=== PATIENT | female | born 1990 | race Caucasian/White ===

== ENCOUNTER 2019-10-18 09:23 | Emergency (ER) | payer MEDICAID, SELFPAY ==
[2019-10-18 09:24] VITALS: BMI 24.0
[2019-10-18 09:29] VITALS: BP 104/77; PULSE 96; RESP 18; TEMP 36.8; O2SAT 100
[2019-10-18 09:49] LABS: Basophils % 0.1 %; Hematocrit 42.7 % (37.0-47.0); Hemoglobin 14.4 g/dL (11.5-15.3); Lymphocytes # 1.1 10^3/uL (0.8-4.8); Lymphocytes % 4.6 %; Mean Corpuscular HGB Conc 33.7 g/dL (30.0-36.0); Mean Corpuscular Hemoglobin 30.9 pg (28.0-34.0); Mean Corpuscular Volume 91.6 fL (81-99); Mean Platelet Volume 12.4 fL (7.4-10.4); Monocytes # 1.3 10^3/uL (0.2-0.9); Monocytes % 5.7 %; Neutrophils # 21.1 10^3/uL (1.8-7.7); Neutrophils % 88.8 %; Nucleated Red Blood Cells % 0 %; Platelet Count 188 10^3/cmm (130-400); Red Blood Count 4.66 10^6/uL (4.1-5.3); Red Cell Distribution Width 12.4 % (12.1-15.1); White Blood Count 23.7 10^3/uL (4.0-10.0)
[2019-10-18 09:59] LABS: HCG Qualitative Urine. Negative (Negative)
[2019-10-18 10:04] LABS: Slide Review Slide Review Perform
[2019-10-18 10:07] LABS: Alanine Aminotransferase 11 U/L (0-33); Albumin Level 4.9 g/dL (3.5-5.2); Alkaline Phosphatase 94 IU/L (35-105); Anion Gap 16.4 (5-19); Aspartate Amino Transferase 13 U/L (0-32); Blood Urea Nitrogen 7 mg/dL (6-20); Carbon Dioxide 24 mmol/L (22-29); Chloride 99 mmol/L (98-107); Globulin 2.5 g/dL (1.3-4.6); Glucose 117 mg/dL (74-109); Potassium 3.4 mmol/L (3.5-5.1); Sodium 136 mmol/L (136-145); Total Bilirubin 0.8 mg/dL (0.15-1.2); Total Protein 7.4 g/dL (6.6-8.7)
[2019-10-18 10:18] LABS: Add Urine Microscopic? YES; Bilirubin Urine Neg (NEGATIVE); Blood Urine 2+ (Negative); Glucose Urine UA Norm (Normal); Ketones Urine 1+ (Negative); Leukocyte Esterase Urine Negative (Negative); Nitrate Urine Negative (Negative); Protein Urine Trace (Negative); Urine Appearance Clear (CLEAR); Urine Color Yellow (Yellow); Urobilinogen Urine Norm (Negative)
[2019-10-18 10:31] LABS: Bacteria Urine 1+; Mucus Urine 1+; Squamous Epithelial Cell Urine 0-4 (0-5); WBC Urine 25-40 /hpf (0-5)
[2019-10-18 10:32] LABS: Add Urine Culture? Yes
== END 2019-10-18 12:04 | disposition left against medical advice (07) ==
LOC: ER 09:50
PROVIDERS: Emergency Provider Family Medicine
DX: Z53.21 Procedure and treatment not carried out due to patient leaving prior to being seen by health care provider (principal)
CPT/HCPCS: 36415; 80053; 81001; 81025; 85025; 87077; 87086; 87186; 99281

== ENCOUNTER 2019-10-18 21:39 | Observation (INO) | payer MEDICAID, SELFPAY ==
[2019-10-18 21:40] VITALS: BP 114/65; PULSE 107; RESP 16; TEMP 37.4; O2SAT 99; BMI 24.0
--- NOTE | 2019-10-18 21:57 | CTR_ITS ---
PROCEDURE INFORMATION: Exam: CT Abdomen With Contrast Exam date and time: 10/18/2019 10:17 PM Age: 29 years old Clinical indication: Abdominal pain; Flank; Right; Prior surgery; Surgery type: Gb; Additional info: Right flank/ R/O pyelonephritis TECHNIQUE: Imaging protocol: Computed tomography images of the abdomen with intravenous contrast. Total DLP: 298.93 mGy-cm Radiation optimization: All CT scans at this facility use at least one of these dose optimization techniques: automated exposure control; mA and/or kV adjustment per patient size (includes targeted exams where dose is matched to clinical indication); or iterative reconstruction. Contrast material: OMNI 300; Contrast volume: 95 ml; Contrast route: IV; COMPARISON: US Renal Kidney Structu* [id number] 10/21/2016 11:04 AM FINDINGS: Lungs: The lung bases are clear. Liver: Unremarkable.Unremarkable. Gallbladder and bile ducts: Prior cholecystectomy, no significant biliary tree dilation. Pancreas: Unremarkable. Spleen: Unremarkable. Adrenals: Unremarkable. Kidneys and ureters: There are prominent areas of poor/decreased enhancement involving the right kidney. Mild wall thickening involving the proximal right ureter. While not completely specific, this appearance is very suspicious for right pyelonephritis. Please correlate clinically. No significant hydronephrosis. Mild right perinephric stranding. No significant perinephric fluid. The left kidney appears essentially unremarkable. Stomach and bowel: Possibility of slightly thickened mucosa/wall in the distal antrum of the stomach. This is a nonspecific appearance, and could well be transient on CT, but could also represent evidence for gastritis or peptic ulcer disease. Please correlate clinically. Several proximal small bowel loops are fluid-filled and borderline/mildly prominent in size, including the duodenum. The overall appearance is not strongly suggestive of significant small bowel obstruction at this time. This appearance could be secondary to an ileus or some form of gastroenteritis. Please correlate clinically. If there is clinical suspicion for small bowel obstruction, follow-up may be helpful to exclude progression. Appendix: The appendix is identified, and there are no suspicious findings for appendicitis. No pericecal inflammatory changes are seen. Intraperitoneal space: No free intraperitoneal air, or ascites. Lymph nodes: No retroperitoneal adenopathy. Vasculature: No evidence for abdominal aortic aneurysm. Bones/joints: No significant acute abnormality. Soft tissues: No significant acute abnormality. CT/CT abdomen w con* [id number] IMPRESSION: 1. Findings compatible with right pyelonephritis, see above discussion. 2. Several proximal small bowel loops are fluid-filled and borderline/mildly prominent in size, see above discussion. This appearance could be secondary to an ileus or some form of gastroenteritis. 3. Possible thickened mucosa/wall in the distal stomach, see above discussion. 4. Other findings discussed above. 5. The pelvis was not included on this exam. Radiation Dose CTDIVOL = (mGy): DLP = 298.93 (mGy-cm)
--- NOTE | 2019-10-18 22:00 | ED_ITS ---
HPI - General Adult General: Chief complaint: Abdominal Pain Stated complaint: RT SIDED FLANK PAIN Time Seen by Provider: 10/18/19 21:43 History of Present Illness: HPI narrative: Patient complain about right flank pain urinary frequency fever chills nausea last few days. Was here in the ER earlier today and left before being seen. White count was almost 24,000 definite UTI on urinalysis results patient is not feeling better. MD complaint: uti Onset (ago): day(s) Location: back and right Severity: moderate Severity scale (1-10): 6 Quality: aching Pain Consistency: constant Relieving factors: none Associated symptoms: Reports fevers/chills and nausea; Deny chest pain, dyspnea, headache(s), rash or vomiting (Yesterday but not today) Review of Systems Const: Denies: fever, chills or body aches Eyes: Denies: change in vision or blurry vision ENMT: Denies: throat pain or nasal congestion Card: Denies: chest pain or shortness of breath on exertion Resp: Denies: shortness of breath, productive cough or non-productive cough GI: Reports: nausea; Denies: abdominal pain or vomiting (Yesterday but not today) : Reports: flank pain, urinary frequency, urinary urgency and urinary hesitancy Musc: Denies: extremity pain Skin/Breast: Denies: rash Neuro: Denies: headache Psych: Denies: anxiety or depression Bijan/Lymph: Denies: easy bruising PFSH ED PFSH: Statuses (acute, chronic, etc) shown below reflect problem list status as previously entered and may not be historically accurate Social History Smoking and tobacco status: current every day smoker Physical Exam Const: COMMON NORMALS: no apparent distress, average body habitus and oriented x3 HENMT: COMMON NORMALS: normocephalic HEAD & SCALP: normal to inspection and normocephalic FACE & SINUS: normal facial exam Eye: COMMON NORMALS: conjunctivae normal GENERAL EYE: normal appearance of both eyes CONJUNCTIVA: Yes conjunctivae normal Neck/C-Spine: COMMON NORMALS: no JVD Chest: COMMONS NORMALS: inspection of chest normal Resp: COMMON NORMALS: normal respiratory effort and clear to auscultation bilaterally AUSCULTATION: clear to auscultation bilaterally Cardio: COMMON NORMALS: no JVD, regular rate and regular rhythm RATE: regular rate RHYTHM: regular rhythm GI: COMMON NORMALS: normal to inspection, nondistended, normoactive bowel sounds PALPATION: Yes tender (Right flank posterior) Extremity: COMMON NORMALS: normal to inspection and full ROM Neuro: COMMON NORMALS: oriented x3 Course Vital Signs: Vital signs: Vital Signs Temperature 99.4 F 10/18/19 21:40 Pulse Rate 107 H 10/18/19 21:40 Respiratory Rate 16 10/18/19 21:40 Blood Pressure 114/65 10/18/19 21:40 Pulse Oximetry 99 10/18/19 21:40 MDM - General Adult MDM Narrative: Medical decision making narrative: spoke with Dr. Miller, will accept for admission, report to Dr. Byrd Lab Data: Labs: Lab Results 10/18/19 10/18/19 10/18/19 Range/Units 21:48 22:05 22:05 WBC 20.5 H (4.0-10.0) 10^3/ uL RBC 4.51 (4.1-5.3) 10^6/u L Hgb 13.5 (11.5-15.3) g/dL Hct 39.5 (37.0-47.0) % MCV 87.6 (81-99) fL MCH 29.9 (28.0-34.0) pg MCHC 34.2 (30.0-36.0) g/dL RDW 12.3 (12.1-15.1) % Plt Count 160 (130-400) 10^3/c mm MPV 12.6 H (7.4-10.4) fL Neut % (Auto) 82.1 % Lymph % (Auto) 9.8 % Preble % (Auto) 7.3 % Eos % (Auto) 0.0 % Baso % (Auto) 0.2 % Neut # (Auto) 16.8 H (1.8-7.7) 10^3/u L Lymph # (Auto) 2.0 (0.8-4.8) 10^3/u L Preble # (Auto) 1.5 H (0.2-0.9) 10^3/u L Eos # (Auto) 0.0 (0.0-0.8) 10^3/u L Baso # (Auto) 0.1 (0.0-0.1) 10^3/u L Nucleated RBC % (a uto) 0 % Nucleated RBCs # 0.0 /100WBC Sodium 134 L (136-145) mmol/L Potassium 2.9 L (3.5-5.1) mmol/L Chloride 97 L (98-107) mmol/L Carbon Dioxide 23 (22-29) mmol/L Anion Gap 16.9 (5-19) BUN 7 (6-20) mg/dL Creatinine 0.8 (0.5-0.9) mg/dL GFR Calculation 85.4 L (90-130) mL/min Glucose 113 H (74-109) mg/dL Lactic Acid (0.5-2.2) mmol/L Calcium 9.5 (8.5-10.5) mg/dL Total Bilirubin 0.7 (0.15-1.2) mg/dL AST 11 (0-32) U/L ALT 9 (0-33) U/L Alkaline Phosphata se 90 (35-105) IU/L Total Protein 7.4 (6.6-8.7) g/dL Albumin 4.3 (3.5-5.2) g/dL Globulin 3.1 (1.3-4.6) g/dL Lipase 11 L (13-60) U/L Urine Color Yellow (Yellow) Urine Appearance Clear (CLEAR) Urine pH 5 (5-7) Ur Specific Gravit y 1.005 (1.005-1.030) Urine Protein Trace (Negative) Urine Glucose (UA) Norm (Normal) Urine Ketones 1+ H (Negative) Urine Occult Blood 2+ H (Negative) Urine Nitrate Negative (Negative) Urine Bilirubin Neg (NEGATIVE) Urine Urobilinogen Norm (Negative) mg/dL Ur Leukocyte Roselia ase Negative (Negative) Urine RBC 10-15 H (0-2) /hpf Urine WBC 25-40 H (0-5) /hpf Ur Squamous Epith Cells 10-15 H (0-5) Urine Bacteria 1+ H (NONE) Urine Mucus Trace 10/18/19 Range/Units 22:05 WBC (4.0-10.0) 10^3/ uL RBC (4.1-5.3) 10^6/u L Hgb (11.5-15.3) g/dL Hct (37.0-47.0) % MCV (81-99) fL MCH (28.0-34.0) pg MCHC (30.0-36.0) g/dL RDW (12.1-15.1) % Plt Count (130-400) 10^3/c mm MPV (7.4-10.4) fL Neut % (Auto) % Lymph % (Auto) % Preble % (Auto) % Eos % (Auto) % Baso % (Auto) % Neut # (Auto) (1.8-7.7) 10^3/u L Lymph # (Auto) (0.8-4.8) 10^3/u L Preble # (Auto) (0.2-0.9) 10^3/u L Eos # (Auto) (0.0-0.8) 10^3/u L Baso # (Auto) (0.0-0.1) 10^3/u L Nucleated RBC % (a uto) % Nucleated RBCs # /100WBC Sodium (136-145) mmol/L Potassium (3.5-5.1) mmol/L Chloride (98-107) mmol/L Carbon Dioxide (22-29) mmol/L Anion Gap (5-19) BUN (6-20) mg/dL Creatinine (0.5-0.9) mg/dL GFR Calculation (90-130) mL/min Glucose (74-109) mg/dL Lactic Acid 0.7 (0.5-2.2) mmol/L Calcium (8.5-10.5) mg/dL Total Bilirubin (0.15-1.2) mg/dL AST (0-32) U/L ALT (0-33) U/L Alkaline Phosphata se (35-105) IU/L Total Protein (6.6-8.7) g/dL Albumin (3.5-5.2) g/dL Globulin (1.3-4.6) g/dL Lipase (13-60) U/L Urine Color (Yellow) Urine Appearance (CLEAR) Urine pH (5-7) Ur Specific Gravit y (1.005-1.030) Urine Protein (Negative) Urine Glucose (UA) (Normal) Urine Ketones (Negative) Urine Occult Blood (Negative) Urine Nitrate (Negative) Urine Bilirubin (NEGATIVE) Urine Urobilinogen (Negative) mg/dL Ur Leukocyte Roselia ase (Negative) Urine RBC (0-2) /hpf Urine WBC (0-5) /hpf Ur Squamous Epith Cells (0-5) Urine Bacteria (NONE) Urine Mucus Coding Level of Care Code ED Polls Or Surveys Interviewer for Chg Fwd Exam Problem Focused
[2019-10-18 22:16] LABS: Basophils # 0.1 10^3/uL (0.0-0.1); Basophils % 0.2 %; Hematocrit 39.5 % (37.0-47.0); Hemoglobin 13.5 g/dL (11.5-15.3); Lymphocytes % 9.8 %; Mean Corpuscular HGB Conc 34.2 g/dL (30.0-36.0); Mean Corpuscular Hemoglobin 29.9 pg (28.0-34.0); Mean Corpuscular Volume 87.6 fL (81-99); Mean Platelet Volume 12.6 fL (7.4-10.4); Monocytes # 1.5 10^3/uL (0.2-0.9); Monocytes % 7.3 %; Neutrophils # 16.8 10^3/uL (1.8-7.7); Neutrophils % 82.1 %; Nucleated Red Blood Cells % 0 %; Platelet Count 160 10^3/cmm (130-400); Red Blood Count 4.51 10^6/uL (4.1-5.3); Red Cell Distribution Width 12.3 % (12.1-15.1); White Blood Count 20.5 10^3/uL (4.0-10.0)
[2019-10-18] MEDS: ketorolac 60 mg/2 mL INJ IM (22:22)
[2019-10-18 22:23] LABS: Alanine Aminotransferase 9 U/L (0-33); Albumin Level 4.3 g/dL (3.5-5.2); Alkaline Phosphatase 90 IU/L (35-105); Anion Gap 16.9 (5-19); Aspartate Amino Transferase 11 U/L (0-32); Blood Urea Nitrogen 7 mg/dL (6-20); Calcium 9.5 mg/dL (8.5-10.5); Carbon Dioxide 23 mmol/L (22-29); Chloride 97 mmol/L (98-107); Globulin 3.1 g/dL (1.3-4.6); Glomerular Filtration Rate 85.4 mL/min (90-130); Glucose 113 mg/dL (74-109); Lipase 11 U/L (13-60); Potassium 2.9 mmol/L (3.5-5.1); Sodium 134 mmol/L (136-145); Total Bilirubin 0.7 mg/dL (0.15-1.2); Total Protein 7.4 g/dL (6.6-8.7)
[2019-10-18] MEDS: sodium chloride 0.9% 1,000 ML 999 ML IV (22:23)
[2019-10-18] MEDS: piperacillin-tazobactam 3.375 GM in sodium chloride 0.9% (plus) 50 ML IV (22:23)
[2019-10-18 22:24] LABS: Lactic Sepsis W/Reflex 0.7 mmol/L (0.5-2.2)
[2019-10-18] MEDS: iohexol 300 mg/mL 100 mL Btl 95 ML IV (22:25)
[2019-10-18 22:41] LABS: Slide Review Slide Review Perform
[2019-10-18 22:49] LABS: Add Urine Microscopic? YES; Bilirubin Urine Neg (NEGATIVE); Blood Urine 2+ (Negative); Glucose Urine UA Norm (Normal); Ketones Urine 1+ (Negative); Leukocyte Esterase Urine Negative (Negative); Nitrate Urine Negative (Negative); Protein Urine Trace (Negative); Specific Gravity, Urine 1.005 (1.005-1.030); Urine Appearance Clear (CLEAR); Urine Color Yellow (Yellow); Urobilinogen Urine Norm (Negative); pH Urine 5 (5-7)
[2019-10-18 22:54] LABS: Bacteria Urine 1+; Mucus Urine TRACE; WBC Urine 25-40 /hpf (0-5)
--- NOTE | 2019-10-18 23:14 | P.HP_ITS ---
Providers/Chief Complaint Primary Care Provider: Dilshad Foster NP Chief Complaint: RT SIDED FLANK PAIN History of Present Illness Deisi Mendez is a 29 year old female with no significant past medical history came in with chief complaint of right flank pain. Patient is stating that her symptoms started about 4 days ago. Around evening she started experiencing sharp excruciating right-sided flank pain which was radiating towards her groin, she did not come to ER for evaluation, she started spiking fever of 100.4 associated with chills, experience 1-2 episodes of nausea/ vomiting and one episode of diarrhea, on 4th day she decided to come to ER because of unbearable pain. She did not notice any burning on voiding urine, b lood in urine, she is denying any history of STDs, she is and uses contraceptives, last menstrual period was about 3 to 4 years ago. She smokes 1 pack/day. Diagnostics in ER showed leukocytosis, normal lactic acid, CT showed right-sided pyelonephritis, urinalysis shows hematuria with pyuria Systolic blood pressure 98, diastolic 60 mmHg Patient is stating that an ambulance her temperature was 103 however in ER she has been afebrile Review of Systems Const: Reports: fever, chills and body aches Eyes: Denies: change in vision ENMT: Denies: throat pain Card: Denies: chest pain Resp: Reports: non-productive cough; Denies: shortness of breath GI: Reports: abdominal pain and nausea : Reports: flank pain; Denies: difficulty urinating, urinary frequency or urinary dribbling Musc: Denies: neck pain Skin/Breast: Denies: rash Neuro: Denies: headache Psych: Denies: anxiety Endo: Denies: excessive urination Bijan/Lymph: Denies: easy bruising All/Imm: Denies: hives Medications/Allergies Allergies Allergy/AdvReac Type Severity Reaction Status Date / Time clindamycin Allergy ALGY-Joint Verified 10/18/19 21:50 Pain PFSH Acute PFSH: Statuses (acute, chronic, etc) shown below reflect problem list status as previously entered and may not be historically accurate Medical History (Updated 10/18/19 @ 23:16 by Bill Mcintyre MD) Alcoholism (Acute) Back pain (Acute) Depression (Acute) Insomnia (Acute) Migraine headache (Acute) Surgical History (Updated 10/18/19 @ 23:47 by Bill Mcintyre MD) Hx of cholecystectomy (Acute) No pertinent past surgical history (Acute) Family History (Updated 10/18/19 @ 23:17 by Bill Mcintyre MD) Denies family history of CAD (coronary artery disease) Chronic kidney disease (CKD) Anesthesia complication Bleeding disorder Cancer Social History (Updated 10/18/19 @ 23:48 by Bill Mcintyre MD) Smoking and tobacco status: current every day smoker cigarettes Packs smoked per day: 1 Alcohol intake: never Substance/Drug Use: never Household members: spouse Marital status: Vitals/I&O/Wt Last Vital Signs Temp 99.4 F 10/18/19 21:40 Pulse 107 H 10/18/19 21:40 Resp 16 10/18/19 21:40 BP 114/65 10/18/19 21:40 Pulse Ox 99 10/18/19 21:40 10/18/19 10/18/19 10/19/19 14:59 22:59 06:59 Intake Total 50 / 50 Balance 50 / 50 Weight last 48 hrs Weight 55.792 kg Physical Exam Narrative: EXAM NARRATIVE: Young female lying comfortably in her bed No acute distress Appears stated age No signs of dehydration EOMI, PERRLA S1-S2 no signs of heart murmur or JVD Abdomen soft, no signs of peritonitis, right flank CVA tenderness positive, bowel sounds present, Lungs are clear to auscultation Neurologically nonfocal exam Skin shows no signs of ischemia gangrene or ulcer Appropriate mood and affect Data : 10/18/19 22:05 10/18/19 22:05 Micro: Microbiology 10/18/19 22:05 Blood Culture - Preliminary Blood SPECIMEN COLLECTED A&P Assessment and plan (1) Pyelonephritis: Status: Acute Code(s): N12 - Tubulo-interstitial nephritis, not specified as acute or chronic (2) Hypokalemia: Status: Acute Code(s): E87.6 - Hypokalemia (3) Hematuria: Status: Acute Code(s): R31.9 - Hematuria, unspecified (4) Smoker: Status: Acute Code(s): F17.200 - Nicotine dependence, unspecified, uncomplicated Additional A&P Information Right-sided non-complicated pyelonephritis Leukocytosis with fever meets sepsis criteria, patient had received 2 L normal saline in ER Currently on ceftriaxone Continue IV fluid resuscitation, We will check chlamydia and gonorrhea along HIV panel Hematuria: CT abdomen did not show any signs of kidney stones, recommended urinalysis in 2 to 3 weeks for resolution of hematuria She is a smoker Active smoker: Counseled on smoking cessation and explained the benefits of quitting smoking and offered nicotine replacement therapies but patient refused, not ready to quit Hypokalemia secondary to diarrhea and vomiting Potassium repleted DVT prophylaxis: Lovenox GI prophylaxis: Not needed Full code Attestations Medical Necessity Statement*: Anticipating discharge in less than 48 hours patient was admitted for non-complicated pyelonephritis because of nausea and vomiting, hypokalemia Time Spent in Patient Care: 45 Coding Level of Care Code Acute Network Diagnostic Support Specialist for Ame Driscoll Diagnoses Pyelonephritis N12 Hypokalemia E87.6 Hematuria R31.9 Smoker F17.200
[2019-10-18 23:18] LABS: HCG Qualitative Urine. Negative (Negative)
[2019-10-18 23:26] LABS: Magnesium 2.1 mg/dL (1.7-2.3)
[2019-10-18 23:35] VITALS: BP 98/63; PULSE 97; RESP 18; TEMP 37.4; O2SAT 98
[2019-10-18 23:56] VITALS: BP 103/73; PULSE 77; RESP 22; TEMP 36.8; O2SAT 99
[2019-10-19 00:26] LABS: HIV 1 & 2 Antibody Non-Reactive (Non-Reactiv); HIV 1 & 2 Antigen Non-Reactive (Non-Reactiv)
[2019-10-19] MEDS: acetaminophen 325 mg Tablet 650 MG PO ×3 (00:31→13:30)
[2019-10-19] MEDS: sodium chloride 0.9% 1,000 ML 200 ML IV ×3 (00:31→09:56)
[2019-10-19] MEDS: enoxaparin 40 mg/0.4 mL Syringe SUBCUT (00:32)
[2019-10-19 03:26] VITALS: BP 93/67; PULSE 75; RESP 17; TEMP 36.9; O2SAT 97
[2019-10-19 04:32] VITALS: RESP 18
[2019-10-19] MEDS: morphine 4 mg/mL SDV 1 mL 2 MG IVP (04:32)
--- NOTE | 2019-10-19 04:38 | PC.NURSE ---
Witnessed Waste of Linda Addison RN waste 2mg of morphine in sharps box.
[2019-10-19 05:53] LABS: Basophils % 0.2 %; Eosinophils % 0.1 %; Hemoglobin 12.8 g/dL (11.5-15.3); Lymphocytes # 1.7 10^3/uL (0.8-4.8); Lymphocytes % 10.1 %; Mean Corpuscular HGB Conc 32.8 g/dL (30.0-36.0); Mean Corpuscular Hemoglobin 30.6 pg (28.0-34.0); Mean Corpuscular Volume 93.3 fL (81-99); Mean Platelet Volume 12.9 fL (7.4-10.4); Monocytes # 1.1 10^3/uL (0.2-0.9); Monocytes % 6.6 %; Neutrophils # 13.7 10^3/uL (1.8-7.7); Neutrophils % 82.2 %; Nucleated Red Blood Cells % 0 %; Platelet Count 155 10^3/cmm (130-400); Red Blood Count 4.18 10^6/uL (4.1-5.3); Red Cell Distribution Width 12.6 % (12.1-15.1); White Blood Count 16.6 10^3/uL (4.0-10.0)
[2019-10-19 06:21] LABS: Anion Gap 15.1 (5-19); Blood Urea Nitrogen 8 mg/dL (6-20); Calcium 8.3 mg/dL (8.5-10.5); Carbon Dioxide 21 mmol/L (22-29); Chloride 109 mmol/L (98-107); Glucose 109 mg/dL (74-109); Osmolality Calculated 288 mOsm/kg (285-295); Potassium 4.1 mmol/L (3.5-5.1); Sodium 141 mmol/L (136-145)
[2019-10-19 08:00] VITALS: BP 107/65; PULSE 66; RESP 18; TEMP 36.7; O2SAT 99
[2019-10-19] MEDS: baclofen 10 mg Tablet PO (10:10)
[2019-10-19] MEDS: cefTRIAXone 1,000 MG in sodium chloride 0.9% (plus) 50 ML 100 MG IV (10:13)
[2019-10-19 11:48] VITALS: BP 116/57; PULSE 66; RESP 18; TEMP 37; O2SAT 100
--- NOTE | 2019-10-19 12:25 | PM.DCS ---
Discharge Providers Date of Admission: 10/18/19 23:11 Date of Discharge: 10/19/19 Attending Provider at Admission: Bill Mcintyre MD Attending Provider at Discharge: Paul Mejia MD Primary Care Provider: Dilshad Foster NP Diagnoses at Discharge Discharge Diagnosis (1) Pyelonephritis: Status: Acute (2) Hypokalemia: Status: Acute (3) Hematuria: Status: Acute (4) Smoker: Status: Acute Reason for Visit Reason for Visit: Reason For Visit: RT SIDED FLANK PAIN Hospital Course Discharge Summary: Deisi Mendez is a 29 year old female with no significant past medical history came in with chief complaint of right flank pain. Patient is stating that her symptoms started about 4 days ago. Around evening she started experiencing sharp excruciating right-sided flank pain which was radiating towards her groin, she did not come to ER for evaluation, she started spiking fever of 100.4 associated with chills, experience 1-2 episodes of nausea/ vomiting and one episode of diarrhea, on day she decided to come to ER on October 18 because of unbearable pain. Patient was started on IV fluids and after doing the urine culture and blood culture started on ceftriaxone. By morning patient started feeling a lot better and was requesting to be discharged as she is worried about her young kids who are at home. Patient has been hemodynamically stable and has remained afebrile. After extensive discussion patient continued to request discharge so is being discharged on oral Levaquin course for 10 days as per her urine culture historical sensitivities. Patient has been educated and counseled regarding the fact that urine cultures will only be confirmed in the next 48 hours and prior to that it is difficult to say if oral Levaquin is good enough for her and that can even cause for her to go into sepsis and potential bacteremia. Patient stated she understands the concerns but would want to be discharged on oral Levaquin. We will follow-up the urine cultures and if there are any changes we will let the patient know. Patient is to follow-up with a primary care physician within next 7 to 10 days. Physical Exam Narrative: EXAM NARRATIVE: Young female lying comfortably in her bed No acute distress Appears stated age No signs of dehydration EOMI, PERRLA S1-S2 no signs of heart murmur or JVD Abdomen soft, no signs of peritonitis, nontender, no organomegaly, bowel sounds present, Lungs are clear to auscultation Neurologically nonfocal exam Skin shows no signs of ischemia gangrene or ulcer Appropriate mood and affect Discharge Data Data Completed and Pending: Completed Studies During Hospitalization Category Date Time Status CT abdomen w con* [id number] Urgent Cat Scan 10/18/19 21:57 Completed Pending at discharge Category Date Time Status Blood Culture Sta t Lab 10/18/19 22:05 Results Labs from last 24 hours 10/19/19 10/19/19 10/18/19 05:15 05:15 22:05 WBC 16.6 H RBC 4.18 Hgb 12.8 Hct 39.0 MCV 93.3 D MCH 30.6 MCHC 32.8 RDW 12.6 Plt Count 155 MPV 12.9 H Neut % (Auto) 82.2 Lymph % (Auto) 10.1 Dickinson % (Auto) 6.6 Eos % (Auto) 0.1 Baso % (Auto) 0.2 Neut # (Auto) 13.7 H Lymph # (Auto) 1.7 Dickinson # (Auto) 1.1 H Eos # (Auto) 0.0 Baso # (Auto) 0.0 Nucleated RBC % (a uto) 0 Nucleated RBCs # 0.0 Sodium 141 Potassium 4.1 Chloride 109 H Carbon Dioxide 21 L Anion Gap 15.1 BUN 8 Creatinine 0.6 GFR Calculation 119.0 Glucose 109 Calculated Osmolal ity 288 Lactic Acid Calcium 8.3 L Magnesium Total Bilirubin AST ALT Alkaline Phosphata se Total Protein Albumin Globulin Lipase HCG, Qual Urine Color Urine Appearance Urine pH Ur Specific Gravit y Urine Protein Urine Glucose (UA) Urine Ketones Urine Occult Blood Urine Nitrate Urine Bilirubin Urine Urobilinogen Ur Leukocyte Roselia ase Urine RBC Urine WBC Ur Squamous Epith Cells Urine Bacteria Urine Mucus HIV 1&2 Ab & HIV 1 Ag Non-reactive HIV 1&2 Antibody Non-reactive 10/18/19 10/18/19 10/18/19 22:05 22:05 22:05 WBC RBC Hgb Hct MCV MCH MCHC RDW Plt Count MPV Neut % (Auto) Lymph % (Auto) Dickinson % (Auto) Eos % (Auto) Baso % (Auto) Neut # (Auto) Lymph # (Auto) Dickinson # (Auto) Eos # (Auto) Baso # (Auto) Nucleated RBC % (a uto) Nucleated RBCs # Sodium 134 L Potassium 2.9 L Chloride 97 L Carbon Dioxide 23 Anion Gap 16.9 BUN 7 Creatinine 0.8 GFR Calculation 85.4 L Glucose 113 H Calculated Osmolal ity Lactic Acid 0.7 Calcium 9.5 Magnesium 2.1 Total Bilirubin 0.7 AST 11 ALT 9 Alkaline Phosphata se 90 Total Protein 7.4 Albumin 4.3 Globulin 3.1 Lipase 11 L HCG, Qual Urine Color Urine Appearance Urine pH Ur Specific Gravit y Urine Protein Urine Glucose (UA) Urine Ketones Urine Occult Blood Urine Nitrate Urine Bilirubin Urine Urobilinogen Ur Leukocyte Roselia ase Urine RBC Urine WBC Ur Squamous Epith Cells Urine Bacteria Urine Mucus HIV 1&2 Ab & HIV 1 Ag HIV 1&2 Antibody 10/18/19 10/18/19 10/18/19 22:05 21:48 21:48 WBC 20.5 H RBC 4.51 Hgb 13.5 Hct 39.5 MCV 87.6 MCH 29.9 MCHC 34.2 RDW 12.3 Plt Count 160 MPV 12.6 H Neut % (Auto) 82.1 Lymph % (Auto) 9.8 Dickinson % (Auto) 7.3 Eos % (Auto) 0.0 Baso % (Auto) 0.2 Neut # (Auto) 16.8 H Lymph # (Auto) 2.0 Dickinson # (Auto) 1.5 H Eos # (Auto) 0.0 Baso # (Auto) 0.1 Nucleated RBC % (a uto) 0 Nucleated RBCs # 0.0 Sodium Potassium Chloride Carbon Dioxide Anion Gap BUN Creatinine GFR Calculation Glucose Calculated Osmolal ity Lactic Acid Calcium Magnesium Total Bilirubin AST ALT Alkaline Phosphata se Total Protein Albumin Globulin Lipase HCG, Qual Negative Urine Color Yellow Urine Appearance Clear Urine pH 5 Ur Specific Gravit y 1.005 Urine Protein Trace Urine Glucose (UA) Norm Urine Ketones 1+ H Urine Occult Blood 2+ H Urine Nitrate Negative Urine Bilirubin Neg Urine Urobilinogen Norm Ur Leukocyte Roselia ase Negative Urine RBC 10-15 H Urine WBC 25-40 H Ur Squamous Epith Cells 10-15 H Urine Bacteria 1+ H Urine Mucus Trace HIV 1&2 Ab & HIV 1 Ag HIV 1&2 Antibody Vitals: Last Vital Signs Temp 98.6 F 10/19/19 11:48 Pulse 66 10/19/19 11:48 Resp 18 10/19/19 11:48 BP 116/57 10/19/19 11:48 Pulse Ox 100 01/24/20 11:48 Discharge Plan Discharge Patient Disposition: Home, Self-Care Condition: Stable Prescriptions: New levofloxacin 750 mg tablet 750 mg PO DAILY 10 Days Qty: 10 RF: 0 Protonix [address] for susp in packet 40 mg PO DAILY 14 Days Qty: 14 RF: 0 No Action No Known Home Medications RF: 0 Discharge Orders: Discharge Order (Routine); Ordered 10/19/19 Ordered By: Paul Mejia Referrals: [facility] [Other] Dilshad Foster NP [Primary Care Provider] - (You have a appointment on @ 1030am. ) Discharge Diet: Regular Discharge Activity: Resume usual activity Discharge Attestations Time Spent in Discharge Care*: greater than 30 min Specific Discharge Activities: Specific discharge activities: educating patient Time Spent in Smoking Cessation: Time spent discussing smoking cessation with patient: 3 to 10 minutes Status at Discharge: Cognitive status at discharge: cognitively intact, Behavioral status at discharge: cooperative, Functional status at discharge: independent ambulation Overall status at discharge: patient is back to baseline Quality Metrics Clinical Quality Measures During this hospital stay, did patient experience: None Coding Level of Care Code Acute Roll Threader Operator for Ame Fwsotero Diagnoses Pyelonephritis N12 Hypokalemia E87.6 Hematuria R31.9 Smoker F17.200
--- NOTE | 2019-10-19 13:14 | PC.CHAP ---
Pastoral Care Encounter/Spiritual Assessment Type of Contact [] Declined teradata architect visit [] Patient/Family/Request visit [] Outpatient visit [] Follow-up visit [] Physician referral [] Code/Alert [x] Routine visit [] Staff referral [] Actively dying [] Patient sleeping [] Family support [] [] Out of room [] Palliative care [] [] Receiving care in room [] Pre-surgical visit [] Trauma [] Long length of stay [] ICU visit [] Other: Relational/Emotional Strength [x] Patient feels connected with others/family/visitors/staff [] Distress [] Loneliness/isolation [] Abandonment Spirituality of Patient [] Person of Michelle [] Attends Taoist of their Michelle [] Believes in Prayer [] Reads Bible or Mormonism materials [x] There are Spiritual issues to be addressed Box Nailer Interventions [x] Prayer x[] Active listening [x] Non-anxious presence [x] Spiritual/emotional support [] Crisis/trauma care [x] Spiritual counseling [] Bereavement support [] Provided bereavement packet [] Provided Bible/devotional materials [] Provided toy/stuffed animal, coloring book to patient or family member [] Completed spiritual assessment [] Provided Communion [] Anointing/[place] [] Salvation [] Other: Impact on Illness or Injury [] Angry [] Fearful [] Anxious [] Often cries [] Exhaustion [] Unable to work [] Unable to attend anglican [] Unable to walk/stand [] Unable to read [] Unable to drive [] Unable to eat/drink [] Unable to sleep [] Unable to be with family [x] Other: N/A Summary Patient was attended in her room by her and two young children. Time spent with patient 5-minutes
--- NOTE | 2019-10-19 13:21 | PM.PN ---
Subjective Subjective: Interval history: This morning patient was requesting discharge. So was discharged on oral Levaquin. But just prior to discharge started having nausea again so understood my concerns and decided to stay. Patient's admission has been changed to inpatient from observation which was placed last night. Vitals/I&O/Wt Last Vital Signs Temp 98.6 F 10/19/19 11:48 Pulse 66 10/19/19 11:48 Resp 18 10/19/19 11:48 BP 116/57 10/19/19 11:48 Pulse Ox 100 10/19/19 11:48 10/18/19 10/19/19 10/19/19 22:59 06:59 14:59 Intake Total 50 / 50 1856.667 / 6396.550 8139 / 1120 Output Total 100 / 100 Balance 50 / 50 1856.667 / 6077.199 9999 / 1020 Weight last 48 hrs Weight 55.792 kg Physical Exam Narrative: EXAM NARRATIVE: General: No acute distress, AO x3 HEENT: PERRLA, pupils bilaterally equal and reactive Chest: Normal vesicular breath sounds, no added sounds, equal good air entry bilaterally CVS: S1-S2 regular, no murmurs, no tachycardia, no gallops, no rubs Abdomen: Soft, nontender, no organomegaly, bowel sounds present Neuro: No focal deficits, no facial deformity, AO x3, power 5/5 in all limbs Data : 10/19/19 05:15 10/19/19 05:15 Micro: Microbiology 10/19/19 00:00 Chlamydia trachomatis ([facility]LY) - Final Urine Random Neisseria gonorrhoeae ([facility]) - Final 10/18/19 22:05 Blood Culture - Preliminary Blood SPECIMEN COLLECTED A&P Assessment and plan (1) Pyelonephritis: Status: Acute Code(s): N12 - Tubulo-interstitial nephritis, not specified as acute or chronic (2) Hypokalemia: Status: Acute Code(s): E87.6 - Hypokalemia (3) Hematuria: Status: Acute Code(s): R31.9 - Hematuria, unspecified (4) Smoker: Status: Acute Code(s): F17.200 - Nicotine dependence, unspecified, uncomplicated Additional A&P Information Sepsis secondary to right-sided non-complicated pyelonephritis: Patient had decided to stay now. Continue with ceftriaxone at current dose. Urine culture positive for gram-negative rods. Will de-escalate antibiotics as per the culture sensitivities. Historically in 2018 patient had pansensitive E. coli. IV fluid resuscitation with normal saline at 75 cc/h. Chlamydia and gonorrhea test negative. Hematuria: CT abdomen did not show any signs of kidney stones, recommended urinalysis in 2 to 3 weeks for resolution of hematuria She is a smoker Active smoker: Counseled on smoking cessation and explained the benefits of quitting smoking and offered nicotine replacement therapies but patient refused, not ready to quit Hypokalemia secondary to diarrhea and vomiting Potassium repleted DVT prophylaxis: Lovenox GI prophylaxis: Not needed Full code Attestations Medical Necessity Statement*: Needs controlled hospitalization for management of right-sided pyonephritis. Admission change to inpatient from observation. Time Spent in Patient Care: Greater than 35 minutes (>than 50% of time spent in counselling and/or direct pt care on unit). Coding Level of Care Code Acute Electronic Repair Troubleshooter for Ame Driscoll Diagnoses Pyelonephritis N12 Hypokalemia E87.6 Hematuria R31.9 Smoker F17.200
[2019-10-19] MEDS: ondansetron 2 mg/ML SDV 2 mL 4 MG IVP (13:31)
[2019-10-19 15:46] VITALS: BP 116/57; PULSE 66; RESP 18; TEMP 37; O2SAT 100
== END 2019-10-19 15:55 | disposition home or self-care (01) ==
LOC: ER 23:16 → MEDSURG 23:38
PROVIDERS: Nurse Practitioner Family; Admitting Provider Internal Medicine; Emergency Provider Emergency Medicine; PCP Nurse Practitioner Family; Visit Provider Student in an Organized Health Care Education/Training Program
DX: N12 Tubulo-interstitial nephritis, not specified as acute or chronic (principal); E87.6 Hypokalemia; R31.9 Hematuria, unspecified; F17.210 Nicotine dependence, cigarettes, uncomplicated; Z82.49 Family history of ischemic heart disease and other diseases of the circulatory system
CPT/HCPCS: 12345; 36415; 74160; 80048; 80053; 81001; 81025; 83605; 83690; 83735; 85025; 87040; 87389; 87491; 87591; 96360; 96361; 96365; 96372; 96374; 96375; 99282; 99285; G0378; J0696; J1650; J1885; J2270; J2405; J2543; J7030; Q9967

== ENCOUNTER 2020-06-13 09:13 | Emergency (ER) | payer MEDICAID, SELFPAY ==
[2020-06-13 09:15] VITALS: BP 104/73; PULSE 85; RESP 18; TEMP 36.6; O2SAT 98; BMI 20.2
--- NOTE | 2020-06-13 09:26 | US_ITS ---
WS: [id number] TRANSABDOMINAL AND TRANSVAGINAL PELVIC ULTRASOUND HISTORY: left sided pain COMPARISON: None available. Uterus: 8.2 x 3.0 x 4.3 cm; normal anteverted uterus. No fibroid or mass. Endometrium: 5 mm; normal homogeneity. Right ovary: 4.2 x 2.2 x 2.3 cm. The RIGHT ovary is enlarged and contains multiple complex cysts. The re is a hemorrhagic cyst associated with the RIGHT ovary measuring 2.1 x 2.2 x 2.0 cm. There is an ad ditional complex cyst measuring 1.8 x 1.4 x 2.1 cm. Within the periphery there is normal vascularity. Left ovary: 2.5 x 1.6 x 2.0 cm; small follicles. Normal vascularity. No free fluid. US/US pelvic with transvaginal IMPRESSION: 1. Hemorrhagic cyst and mildly complex cyst associated with the RIGHT ovary. 2. No solid mass. 3. No free fluid.
--- NOTE | 2020-06-13 09:27 | W.ED.FEMALGU ---
HPI - Female Genitourinary General: Chief complaint: Urogenital-Female Stated complaint: pelvic pain Time Seen by Provider: 06/13/20 09:20 History of Present Illness: HPI Narrative: Patient complains about left sided pelvic pain since yesterday. Denies any vaginal discharge bleeding does have some pain with intercourse. Has possible history of ovarian cyst years ago she says. Said they wanted a laparoscopic on her and and she did not have that done. It is possible she might be . Does have urinary frequency long-term. MD elicited complaint: pelvic pain Onset (ago): day(s) Location of symptoms: pelvis Severity: moderate Female Urogenital Radiation: LLQ Severity scale (1-10): 6 Quality of pain: cramping and sharp Consistency: constant and progressively worsening Vaginal discharge: none Vaginal bleeding: none Urinary symptoms: Frequency Exacerbating factors: intercourse and movement Associated symptoms: Reports no associated symptoms and abdominal pain (Left lower quadrant pelvic area); Deny headache(s) or nausea Treatment prior to arrival: none Sexual activity: Yes Possible : unsure if Review of Systems Const: Denies: fever(s), chills or body aches Eyes: Denies: change in vision or blurry vision ENMT: Denies: throat pain or nasal congestion Card: Denies: chest pain or dyspnea on exertion Resp: Denies: dyspnea, productive cough or non-productive cough GI: Reports: abdominal pain (Left lower quadrant pelvic area) and GI cramping; Denies: nausea or vomiting Musc: Denies: extremity pain Skin/Breast: Denies: rash Neuro: Denies: headache(s) Psych: Denies: anxiety or depression Bijan/Lymph: Denies: easy bruising PFSH ED PFSH: Medical History (Updated 06/13/20 @ 12:04 by LETITIA Miguel) Alcoholism Back pain Depression Insomnia Migraine headache Surgical History (Updated 10/18/19 @ 23:47 by Bill Mcintyre MD) Hx of cholecystectomy No pertinent past surgical history Family History (Updated 10/18/19 @ 23:17 by Bill Mcintyre MD) Denies family history of CAD (coronary artery disease) Chronic kidney disease (CKD) Anesthesia complication Bleeding disorder Cancer Social History (Updated 10/18/19 @ 23:48 by Bill Mcintyre MD) Smoking and tobacco status: current every day smoker cigarettes Packs smoked per day: 1 Alcohol intake: never Household members: spouse Marital status: Physical Exam Const: COMMON NORMALS: no acute distress, average body habitus and patient oriented x3 HENMT: COMMON NORMALS: normocephalic HEAD & SCALP: normal to inspection and normocephalic FACE & SINUS: normal facial exam Eye: COMMON NORMALS: conjunctivae normal GENERAL EYE: appearance normal, both eyes and all related structures CONJUNCTIVA: Yes conjunctivae normal Neck/C-Spine: COMMON NORMALS: no JVD Chest: COMMONS NORMALS: normal inspection of the chest Resp: COMMON NORMALS: normal respiratory effort and clear to auscultation bilaterally AUSCULTATION: clear to auscultation bilaterally Cardio: COMMON NORMALS: no JVD, regular rate and regular rhythm RATE: regular rate RHYTHM: regular rhythm GI: COMMON NORMALS: Normal to inspection, nondistended, normoactive bowel sounds present : OTHER: Tenderness left lower quadrant ovarian area Extremity: COMMON NORMALS: normal to inspection and full ROM Neuro: COMMON NORMALS: patient oriented x3 Course Vital Signs: Vital signs: Vital Signs Temperature 97.8 F 06/13/20 09:15 Pulse Rate 71 06/13/20 11:14 Respiratory Rate 15 06/13/20 11:14 Blood Pressure 91/61 06/13/20 11:14 Pulse Oximetry 97 06/13/20 11:14 MDM - Female Lab Data: Labs: Lab Results 06/13/20 06/13/20 06/13/20 Range/Units 09:28 10:50 10:50 WBC 10.6 H (4.0-10.0) 10^3/ uL RBC 4.97 (4.1-5.3) 10^6/u L Hgb 15.3 (11.5-15.3) g/dL Hct 45.1 (37.0-47.0) % MCV 90.7 (81-99) fL MCH 30.8 (28.0-34.0) pg MCHC 33.9 (30.0-36.0) g/dL RDW 12.2 (12.1-15.1) % Plt Count 199 (130-400) 10^3/c mm MPV 12.5 H (7.4-10.4) fL Neut % (Auto) 68.2 % Lymph % (Auto) 23.4 % [place] % (Auto) 6.2 % Eos % (Auto) 1.3 % Baso % (Auto) 0.6 % Neut # (Auto) 7.21 (1.8-7.7) 10^3/u L Lymph # (Auto) 2.5 (0.8-4.8) 10^3/u L [place] # (Auto) 0.7 (0.2-0.9) 10^3/u L Eos # (Auto) 0.1 (0.0-0.8) 10^3/u L Baso # (Auto) 0.1 (0.0-0.1) 10^3/u L Nucleated RBC % (a uto) 0 % Nucleated RBCs # 0.0 /100WBC Sodium 139 (136-145) mmol/L Potassium 4.1 (3.5-5.1) mmol/L Chloride 105 (98-107) mmol/L Carbon Dioxide 24 (22-29) mmol/L Anion Gap 14.1 (5-19) BUN 6 (6-20) mg/dL Creatinine 0.7 (0.5-0.9) mg/dL GFR Calculation 99.6 (90-130) mL/min Glucose 105 (65-115) mg/dL Calculated Osmolal ity 286 (285-295) mOsm/k g Calcium 9.2 (8.5-10.5) mg/dL Total Bilirubin 0.3 (0.15-1.2) mg/dL AST 15 (0-32) U/L ALT 13 (0-33) U/L Alkaline Phosphata se 78 (35-105) IU/L Total Protein 6.8 (6.6-8.7) g/dL Albumin 4.3 (3.5-5.2) g/dL Globulin 2.5 (1.3-4.6) g/dL HCG, Qual (Negative) Urine Color Yellow (Yellow) Urine Appearance Clear (CLEAR) Urine pH 5 (5-7) Ur Specific Gravit y 1.020 (1.005-1.030) Urine Protein Neg (Negative) Urine Glucose (UA) Norm (Normal) Urine Ketones 1+ H (Negative) Urine Blood 2+ H (Negative) Urine Nitrate Negative (Negative) Urine Bilirubin 1+ H (Negative) Urine Urobilinogen 1 H (Negative) mg/dL Ur Leukocyte Roselia ase 2+ H (Negative) Urine RBC 0-4 H (0-2) /hpf Urine WBC 25-40 H (0-5) /hpf Ur Squamous Epith Cells 40-55 H (0-5) /hpf Amorphous Sediment Not Reportable Urine Bacteria 2+ H (NONE) /hpf Urine Mucus 2+ /hpf // Range/Units 10:50 WBC (4.0-10.0) 10^3/ uL RBC (4.1-5.3) 10^6/u L Hgb (11.5-15.3) g/dL Hct (37.0-47.0) % MCV (81-99) fL MCH (28.0-34.0) pg MCHC (30.0-36.0) g/dL RDW (12.1-15.1) % Plt Count (130-400) 10^3/c mm MPV (7.4-10.4) fL Neut % (Auto) % Lymph % (Auto) % [place] % (Auto) % Eos % (Auto) % Baso % (Auto) % Neut # (Auto) (1.8-7.7) 10^3/u L Lymph # (Auto) (0.8-4.8) 10^3/u L [place] # (Auto) (0.2-0.9) 10^3/u L Eos # (Auto) (0.0-0.8) 10^3/u L Baso # (Auto) (0.0-0.1) 10^3/u L Nucleated RBC % (a uto) % Nucleated RBCs # /100WBC Sodium (136-145) mmol/L Potassium (3.5-5.1) mmol/L Chloride (98-107) mmol/L Carbon Dioxide (22-29) mmol/L Anion Gap (5-19) BUN (6-20) mg/dL Creatinine (0.5-0.9) mg/dL GFR Calculation (90-130) mL/min Glucose (65-115) mg/dL Calculated Osmolal ity (285-295) mOsm/k g Calcium (8.5-10.5) mg/dL Total Bilirubin (0.15-1.2) mg/dL AST (0-32) U/L ALT (0-33) U/L Alkaline Phosphata se (35-105) IU/L Total Protein (6.6-8.7) g/dL Albumin (3.5-5.2) g/dL Globulin (1.3-4.6) g/dL HCG, Qual Negative (Negative) Urine Color (Yellow) Urine Appearance (CLEAR) Urine pH (5-7) Ur Specific Gravit y (1.005-1.030) Urine Protein (Negative) Urine Glucose (UA) (Normal) Urine Ketones (Negative) Urine Blood (Negative) Urine Nitrate (Negative) Urine Bilirubin (Negative) Urine Urobilinogen (Negative) mg/dL Ur Leukocyte Roselia ase (Negative) Urine RBC (0-2) /hpf Urine WBC (0-5) /hpf Ur Squamous Epith Cells (0-5) /hpf Amorphous Sediment Urine Bacteria (NONE) /hpf Urine Mucus /hpf Discharge Plan Discharge Patient Disposition: Home Clinical Impression: UTI (urinary tract infection) Qualifiers: Urinary tract infection type: acute cystitis Hematuria presence: with hematuria Qualified Code(s): N30.01 - Acute cystitis with hematuria Ovarian cyst Qualifiers: Laterality: right Qualified Code(s): N83.201 - Unspecified ovarian cyst, right side Condition: Stable Prescriptions: New Macrobid 100 mg capsule 100 mg PO BID 7 Days Qty: 14 RF: 0 tramadol 50 mg tablet 50 mg PO Q8H PRN (Reason: pain) Qty: 10 RF: 0 Discharge Orders: Discharge Order (Routine); Ordered 06/13/20 Ordered By: Raffaele Ashley Referrals: Dilshad Foster NP [Primary Care Provider] - Discharge Diet: Usual diet Discharge Activity: Increase activity as tolerated Patient Instructions: Urinary Tract Infection in Women (ED) Activity Restrictions/Additional Instructions: Follow-up with medical provider as directed. Take medications as prescribed. Return to the ER or your medical provider if condition worsens. Please read and understand discharge instructions. If any questions ask please. Discharge Date/Time: 06/13/20 11:16 Coding Level of Care Code ED Back Up Scan Coordinator for Lizg Fwd Exam Comprehensive
[2020-06-13 09:37] VITALS: BP 101/65; PULSE 71; RESP 15; O2SAT 98
[2020-06-13] MEDS: ketorolac 30 mg/mL INJ IVP (09:53)
[2020-06-13 10:27] LABS: Add Urine Microscopic? YES; Bilirubin Urine 1+ (Negative); Blood Urine 2+ (Negative); Glucose Urine UA Norm (Normal); Ketones Urine 1+ (Negative); Leukocyte Esterase Urine 2+ (Negative); Nitrate Urine Negative (Negative); Protein Urine Neg (Negative); Urine Appearance Clear (CLEAR); Urine Color Yellow (Yellow); Urobilinogen Urine 1 mg/dL (Negative); pH Urine 5 (5-7)
[2020-06-13 10:28] LABS: Add Urine Culture? No; Bacteria Urine 2+ /hpf; Mucus Urine 2+ /hpf; RBC Urine 0-4 /hpf (0-2); Squamous Epithelial Cell Urine 40-55 /hpf (0-5); WBC Urine 25-40 /hpf (0-5)
[2020-06-13 11:05] LABS: Basophils # 0.1 10^3/uL (0.0-0.1); Basophils % 0.6 %; Eosinophils # 0.1 10^3/uL (0.0-0.8); Eosinophils % 1.3 %; Hematocrit 45.1 % (37.0-47.0); Hemoglobin 15.3 g/dL (11.5-15.3); Lymphocytes # 2.5 10^3/uL (0.8-4.8); Lymphocytes % 23.4 %; Mean Corpuscular HGB Conc 33.9 g/dL (30.0-36.0); Mean Corpuscular Hemoglobin 30.8 pg (28.0-34.0); Mean Corpuscular Volume 90.7 fL (81-99); Mean Platelet Volume 12.5 fL (7.4-10.4); Monocytes # 0.7 10^3/uL (0.2-0.9); Monocytes % 6.2 %; Neutrophils # 7.21 10^3/uL (1.8-7.7); Neutrophils % 68.2 %; Nucleated Red Blood Cells % 0 %; Platelet Count 199 10^3/cmm (130-400); Red Blood Count 4.97 10^6/uL (4.1-5.3); Red Cell Distribution Width 12.2 % (12.1-15.1); White Blood Count 10.6 10^3/uL (4.0-10.0)
[2020-06-13] MEDS: nitrofurantoin SR (BID) 100 mg Capsule PO (11:10)
[2020-06-13] MEDS: HYDROcodone-acetaminophen 5-325 mg Tablet 1 TAB PO (11:10)
[2020-06-13 11:14] VITALS: BP 91/61; PULSE 71; RESP 15; O2SAT 97
[2020-06-13 11:15] LABS: HCG, Serum Qual Negative (Negative)
[2020-06-13 11:23] LABS: Alanine Aminotransferase 13 U/L (0-33); Albumin Level 4.3 g/dL (3.5-5.2); Alkaline Phosphatase 78 IU/L (35-105); Anion Gap 14.1 (5-19); Aspartate Amino Transferase 15 U/L (0-32); Blood Urea Nitrogen 6 mg/dL (6-20); Calcium 9.2 mg/dL (8.5-10.5); Carbon Dioxide 24 mmol/L (22-29); Chloride 105 mmol/L (98-107); Globulin 2.5 g/dL (1.3-4.6); Glomerular Filtration Rate 99.6 mL/min (90-130); Glucose 105 mg/dL (65-115); Osmolality Calculated 286 mOsm/kg (285-295); Potassium 4.1 mmol/L (3.5-5.1); Sodium 139 mmol/L (136-145); Total Bilirubin 0.3 mg/dL (0.15-1.2); Total Protein 6.8 g/dL (6.6-8.7)
== END 2020-06-13 11:16 | disposition home or self-care (01) ==
PROVIDERS: Emergency Provider Nurse Practitioner Family; PCP Nurse Practitioner Family
DX: N30.01 Acute cystitis with hematuria (principal); N83.201 Unspecified ovarian cyst, right side; F17.210 Nicotine dependence, cigarettes, uncomplicated
CPT/HCPCS: 12345; 76830; 76856; 80053; 81001; 84703; 85025; 96374; 96375; 99282; 99284; J1885

== ENCOUNTER 2020-08-30 10:31 | Emergency (ER) | payer MEDICAID, SELFPAY ==
[2020-08-30 10:37] VITALS: BP 117/72; PULSE 114; RESP 20; TEMP 37.2; O2SAT 96; BMI 21.4
--- NOTE | 2020-08-30 12:00 | ED_ITS ---
HPI - Back Pain/Injury General: Chief Complaint: Urogenital-Female Stated Complaint: lower rt back pain Time Seen by Provider: 08/30/20 10:56 History of Present Illness: HPI Narrative: 50-year-old female presents emergency room complaining of right flank pain radiating down into the right lower quadrant for the last 3 days. She states she thinks is a kidney infection but she denies any dysuria urgency or frequency she cannot really tell she has any hematuria because she is currently having them. She states she does have a temp up to 101.4 she has had nausea and vomiting as well. No skin rash noted. MD elicited complaint: back pain Onset (ago): day(s) (3) Timing: constant Severity: severe Similar Symptoms Previously: Yes Quality: burning and sharp Location: right flank Radiation: groin Exacerbating factors: movement, walking and deep breaths Relieving factors: other (Laying down) Associated symptoms: Reports abdominal pain, chills, difficulty walking, fatigue, fever(s), myalgias, nausea, vomiting and weakness; Deny arthralgias, dysuria, hematuria, numbness, syncope, tingling/numbness/bu rning, urinary frequency or urinary urgency Review of Systems Const: Reports: fever(s), chills and fatigue ENMT: Denies: throat pain, ear or mastoid pain, nasal discharge or nasal congestion Card: Denies: syncope Resp: Denies: dyspnea, productive cough or non-productive cough GI: Reports: abdominal pain, nausea and vomiting : Denies: dysuria, urinary urgency or hematuria Skin/Breast: Denies: rash or pruritus Neuro: Reports: difficulty walking PFSH ED PFSH: Medical History Alcoholism Back pain Depression Insomnia Migraine headache Surgical History Hx of cholecystectomy No pertinent past surgical history Family History Denies family history of CAD (coronary artery disease) Chronic kidney disease (CKD) Anesthesia complication Bleeding disorder Cancer Social History Smoking and tobacco status: current every day smoker cigarettes Packs smoked per day: 1 Alcohol intake: never Household members: spouse Marital status: Female Reproductive History: Date of last menstrual period: 08/30/20 Physical Exam Const: COMMON NORMALS: no acute distress GENERAL APPEARANCE: cooperative and comfortable ORIENTATION/CONSCIOUSNESS: Yes awake, Yes oriented to person, Yes oriented to place and Yes oriented to time HENMT: COMMON NORMALS: normocephalic, atraumatic and hearing grossly normal bilaterally HEAD & SCALP: normocephalic and atraumatic Eye: COMMON NORMALS: Equal, round and reactive pupils present, EOMs intact bilaterally, conjunctivae normal and no scleral icterus CONJUNCTIVA: Yes conjunctivae normal PUPIL: Yes Equal, round and reactive pupils present Neck/C-Spine: COMMON NORMALS: full ROM, no lymphadenopathy, supple and no JVD Lymph: LYMPHATIC: no lymphadenopathy noted and no lymphedema noted Resp: COMMON NORMALS: normal respiratory effort, No retractions, No use of accessory muscles and clear to auscultation bilaterally AUSCULTATION: clear to auscultation bilaterally Cardio: COMMON NORMALS: no JVD, regular rate, regular rhythm and No murmurs present (Cardio) RATE: regular rate RHYTHM: regular rhythm GI: COMMON NORMALS: Soft to palpation and No hepatosplenomegaly present AUSCULTATION: Yes normoactive bowel sounds PALPATION: Yes Soft to palpation, No Tenderness to palpation present (GI), No Guarding due to palpation present (GI) and Yes No hepatosplenomegaly present : BLADDER/KIDNEY EXAM: Yes CVA tenderness (Mild) Back/Pelvis: GENERAL BACK: Yes CVA tenderness (Mild) CVA tenderness: right Extremity: COMMON NORMALS: normal to inspection, capillary refill normal, no clubbing, cyanosis or edema, no calf tenderness and no pedal edema Neuro: SENSORIUM/ORIENTATION: Yes oriented to person, Yes oriented to place and Yes oriented to time Skin: COMMON NORMALS: no rashes or lesions noted NARRATIVE SKIN EXAM: No signs of zoster on the right flank or back. GENERAL SKIN EXAM: no rashes or lesions noted Course Vital Signs: Vital signs: Vital Signs Temperature 99.0 F 08/30/20 10:37 Pulse Rate 78 08/30/20 13:06 Respiratory Rate 18 08/30/20 13:06 Blood Pressure 109/88 08/30/20 13:06 Pulse Oximetry 98 08/30/20 13:06 MDM - Back Pain/Injury MDM Narrative: Medical decision making narrative: UA by catheterization shows mild UTI however patient has disproportionate pain and elevated white count CT confirms pyelonephritis consistent with the other findings. Offered admission patient declined states she has children she needs to go home and take care of given dose of ceftriaxone here we will discharge her home with hydrocodone as well as Zofran and Cipro follow-up in 3 to 5 days primary care sooner if has worsening symptoms Lab Data: Labs: Lab Results 08/30/20 08/30/20 08/30/20 Range/Units 11:50 11:54 11:54 WBC 17.0 H (4.0-10.0) 10^3/ uL RBC 4.52 (4.1-5.3) 10^6/u L Hgb 13.9 (11.5-15.3) g/dL Hct 40.3 (37.0-47.0) % MCV 89.2 (81-99) fL MCH 30.8 (28.0-34.0) pg MCHC 34.5 (30.0-36.0) g/dL RDW 12.3 (12.1-15.1) % Plt Count 179 (130-400) 10^3/c mm MPV 12.4 H (7.4-10.4) fL Neut % (Auto) 81.4 % Lymph % (Auto) 11.1 % [place] % (Auto) 6.7 % Eos % (Auto) 0.1 % Baso % (Auto) 0.2 % Neut # (Auto) 13.82 H (1.8-7.7) 10^3/u L Lymph # (Auto) 1.9 (0.8-4.8) 10^3/u L [place] # (Auto) 1.1 H (0.2-0.9) 10^3/u L Eos # (Auto) 0.0 (0.0-0.8) 10^3/u L Baso # (Auto) 0.0 (0.0-0.1) 10^3/u L Nucleated RBC % (a uto) 0 % Nucleated RBCs # 0.0 /100WBC Sodium 135 L (136-145) mmol/L Potassium 3.3 L (3.5-5.1) mmol/L Chloride 100 (98-107) mmol/L Carbon Dioxide 25 (22-29) mmol/L Anion Gap 13.3 (5-19) BUN 5 L (6-20) mg/dL Creatinine 0.5 (0.5-0.9) mg/dL GFR Calculation 145.9 H (90-130) mL/min Glucose 113 (65-115) mg/dL Calculated Osmolal ity 278 L (285-295) mOsm/k g Calcium 8.9 (8.5-10.5) mg/dL HCG, Qual Negative (Negative) Urine Color (Yellow) Urine Appearance (CLEAR) Urine pH (5-7) Ur Specific Gravit y (1.005-1.030) Urine Protein (Negative) Urine Glucose (UA) (Normal) Urine Ketones (Negative) Urine Blood (Negative) Urine Nitrate (Negative) Urine Bilirubin (Negative) Urine Urobilinogen (Negative) mg/dL Ur Leukocyte Roselia ase (Negative) Urine RBC (0-2) /hpf Urine WBC (0-5) /hpf Ur Squamous Epith Cells (0-5) /hpf Amorphous Sediment Urine Bacteria (NONE) /hpf Urine Mucus /hpf 08/30/20 Range/Units 12:01 WBC (4.0-10.0) 10^3/ uL RBC (4.1-5.3) 10^6/u L Hgb (11.5-15.3) g/dL Hct (37.0-47.0) % MCV (81-99) fL MCH (28.0-34.0) pg MCHC (30.0-36.0) g/dL RDW (12.1-15.1) % Plt Count (130-400) 10^3/c mm MPV (7.4-10.4) fL Neut % (Auto) % Lymph % (Auto) % [place] % (Auto) % Eos % (Auto) % Baso % (Auto) % Neut # (Auto) (1.8-7.7) 10^3/u L Lymph # (Auto) (0.8-4.8) 10^3/u L [place] # (Auto) (0.2-0.9) 10^3/u L Eos # (Auto) (0.0-0.8) 10^3/u L Baso # (Auto) (0.0-0.1) 10^3/u L Nucleated RBC % (a uto) % Nucleated RBCs # /100WBC Sodium (136-145) mmol/L Potassium (3.5-5.1) mmol/L Chloride (98-107) mmol/L Carbon Dioxide (22-29) mmol/L Anion Gap (5-19) BUN (6-20) mg/dL Creatinine (0.5-0.9) mg/dL GFR Calculation (90-130) mL/min Glucose (65-115) mg/dL Calculated Osmolal ity (285-295) mOsm/k g Calcium (8.5-10.5) mg/dL HCG, Qual (Negative) Urine Color Yellow (Yellow) Urine Appearance Hazy A (CLEAR) Urine pH 5 (5-7) Ur Specific Gravit y 1.005 (1.005-1.030) Urine Protein Neg (Negative) Urine Glucose (UA) Norm (Normal) Urine Ketones 1+ H (Negative) Urine Blood 2+ H (Negative) Urine Nitrate Negative (Negative) Urine Bilirubin Neg (Negative) Urine Urobilinogen Norm (Negative) mg/dL Ur Leukocyte Roselia ase Negative (Negative) Urine RBC 5-10 H (0-2) /hpf Urine WBC 5-10 H (0-5) /hpf Ur Squamous Epith Cells 5-10 H (0-5) /hpf Amorphous Sediment Not Reportable Urine Bacteria 2+ H (NONE) /hpf Urine Mucus 2+ /hpf Discharge Plan Discharge Patient Disposition: Home Clinical Impression: Pyelonephritis Condition: Stable Prescriptions: New hydrocodone-acetaminophen 5-325 mg tablet 1 tab PO Q6H PRN (Reason: pain) Qty: 15 RF: 0 Cipro 500 mg tablet 500 mg PO BID Qty: 14 RF: 0 Zofran 4 mg tablet 4 mg PO Q6H PRN (Reason: nausea and vomiting) Qty: 10 RF: 0 No Action multivitamin Tablet 1 tab PO DAILY RF: 0 ibuprofen 200 mg Tablet 200 - 400 mg PO Q6H PRN (Reason: pain/fever) RF: 0 Tylenol 325 mg Capsule 325 - 650 mg PO Q4H PRN (Reason: pain/fever) RF: 0 calcium 1 tab PO DAILY RF: 0 Discharge Orders: Discharge ED (Routine); Ordered 08/30/20 Ordered By: Ezra Robles Referrals: Dilshad Foster NP [Primary Care Provider] - Discharge Diet: Usual diet Discharge Activity: Increase activity as tolerated Activity Restrictions/Additional Instructions: Follow-up with your primary care doctor in the next 3 to 5 days. Return to the emergency room if symptoms worsen Coding Level of Care Code ED [employer] Ha[employer] Truck Driver for Ame Fwsotero Exam Comprehensive
[2020-08-30 12:06] VITALS: BP 106/67; PULSE 76; RESP 18; O2SAT 96
[2020-08-30 12:07] LABS: Basophils % 0.2 %; Eosinophils % 0.1 %; Hematocrit 40.3 % (37.0-47.0); Hemoglobin 13.9 g/dL (11.5-15.3); Lymphocytes # 1.9 10^3/uL (0.8-4.8); Lymphocytes % 11.1 %; Mean Corpuscular HGB Conc 34.5 g/dL (30.0-36.0); Mean Corpuscular Hemoglobin 30.8 pg (28.0-34.0); Mean Corpuscular Volume 89.2 fL (81-99); Mean Platelet Volume 12.4 fL (7.4-10.4); Monocytes # 1.1 10^3/uL (0.2-0.9); Monocytes % 6.7 %; Neutrophils # 13.82 10^3/uL (1.8-7.7); Neutrophils % 81.4 %; Nucleated Red Blood Cells % 0 %; Platelet Count 179 10^3/cmm (130-400); Red Blood Count 4.52 10^6/uL (4.1-5.3); Red Cell Distribution Width 12.3 % (12.1-15.1)
[2020-08-30] MEDS: sodium chloride 0.9% 1,000 ML 999 ML IV (12:09)
[2020-08-30 12:23] LABS: HCG, Serum Qual Negative (Negative)
[2020-08-30 12:25] LABS: Add Urine Microscopic? YES; Bilirubin Urine Neg (Negative); Blood Urine 2+ (Negative); Glucose Urine UA Norm (Normal); Ketones Urine 1+ (Negative); Leukocyte Esterase Urine Negative (Negative); Nitrate Urine Negative (Negative); Protein Urine Neg (Negative); Specific Gravity, Urine 1.005 (1.005-1.030); Urine Appearance Hazy (CLEAR); Urine Color Yellow (Yellow); Urobilinogen Urine Norm (Negative); pH Urine 5 (5-7)
[2020-08-30 12:28] LABS: Add Urine Culture? Yes; Bacteria Urine 2+ /hpf; Mucus Urine 2+ /hpf
[2020-08-30 12:32] LABS: Anion Gap 13.3 (5-19); Blood Urea Nitrogen 5 mg/dL (6-20); Calcium 8.9 mg/dL (8.5-10.5); Carbon Dioxide 25 mmol/L (22-29); Chloride 100 mmol/L (98-107); Glomerular Filtration Rate 145.9 mL/min (90-130); Glucose 113 mg/dL (65-115); Osmolality Calculated 278 mOsm/kg (285-295); Potassium 3.3 mmol/L (3.5-5.1); Sodium 135 mmol/L (136-145)
[2020-08-30] MEDS: morphine 4 mg/mL SDV 1 mL IVP (12:46)
[2020-08-30] MEDS: ondansetron 2 mg/ML SDV 2 mL 4 MG IVP (12:47)
--- NOTE | 2020-08-30 12:54 | CTR_ITS ---
PROCEDURE INFORMATION: Exam: CT Abdomen And Pelvis With Contrast Exam date and time: 08/30/2020 1:15 PM Age: 30 years old Clinical indication: Abdominal pain; Right; Prior surgery; Surgery date: 6+ months; Surgery type: Gb; Patient HX: C/O R flank pain w n/v and fever; Additional info: Abd pain TECHNIQUE: Imaging protocol: Computed tomography of the abdomen and pelvis with intravenous contrast. Radiation optimization: All CT scans at this facility use at least one of these dose optimization techniques: automated exposure control; mA and/or kV adjustment per patient size (includes targeted exams where dose is matched to clinical indication); or iterative reconstruction. Contrast material: OMNI 300; Contrast volume: 75 ml; Contrast route: INTRAVENOUS (IV); COMPARISON: US pelvic with transvaginal 06/13/2020 9:54 AM RADIATION DOSE METRICS: Total DLP (mGy-cm): 200.19 FINDINGS: Liver: Normal. No mass. Gallbladder and bile ducts: Cholecystectomy. Normal bile ducts. Pancreas: Normal. No ductal dilation. Spleen: Normal. No splenomegaly. Adrenal glands: Normal. No mass. Kidneys and ureters: There is inhomogeneous enhancement of the right kidney with a area of diminished enhancement in the inferior pole. This is consistent with right pyelonephritis. There is right perinephric stranding. There is no hydronephrosis. No renal stones are seen. Stomach and bowel: Unremarkable. No obstruction. No mucosal thickening. Appendix: No evidence of appendicitis. Intraperitoneal space: There is a tiny amount of nonspecific free fluid in the pelvis. Vasculature: Unremarkable. No abdominal aortic aneurysm. Lymph nodes: Unremarkable. No enlarged lymph nodes. Urinary bladder: Unremarkable as visualized. Reproductive: Unremarkable as visualized. Bones/joints: Unremarkable. No acute fracture. Soft tissues: Unremarkable. CT/CT abdomen pelvis w con* [id number] IMPRESSION: Right pyelonephritis. No hydronephrosis or renal stone is seen. Radiation Dose CTDIVOL = (mGy): DLP = 200.19 (mGy-cm)
[2020-08-30 13:06] VITALS: BP 109/88; PULSE 78; RESP 18; O2SAT 98
[2020-08-30] MEDS: cefTRIAXone 2,000 MG in sodium chloride 0.9% (plus) 50 ML 100 MG IV (13:28)
[2020-08-30] MEDS: iohexol 300 mg/mL 100 mL Btl IV (13:30)
[2020-08-30 14:00] VITALS: BP 109/88; PULSE 97; RESP 18; O2SAT 98
[2020-08-30 14:31] VITALS: BP 109/88; PULSE 97; RESP 18; O2SAT 98
== END 2020-08-30 14:32 | disposition home or self-care (01) ==
PROVIDERS: Emergency Provider Family Medicine; PCP Nurse Practitioner Family
DX: N12 Tubulo-interstitial nephritis, not specified as acute or chronic (principal); F17.210 Nicotine dependence, cigarettes, uncomplicated
CPT/HCPCS: 12345; 74177; 80048; 81001; 84703; 85025; 87077; 87086; 87186; 96365; 96375; 99283; J0696; J2270; J2405; J7030; Q9967

== ENCOUNTER 2020-11-14 09:53 | Emergency (ER) | payer MEDICAID, SELFPAY ==
[2020-11-14 09:56] VITALS: BP 117/67; PULSE 61; RESP 18; TEMP 36.7; O2SAT 100; BMI 21.1
[2020-11-14 10:02] VITALS: BP 109/74; PULSE 65; RESP 16
--- NOTE | 2020-11-14 10:11 | W.ED.NAVMDI ---
HPI - Nausea/Vomiting/Diarrhea General: Chief complaint: Nausea/Vomiting/Diarrhea Stated complaint: NAUSEA/ VOMITING Time Seen by Provider: 11/14/20 09:54 History of Present Illness: HPI Narrative: 30-year-old female presents emergency room who is currently approximately 4 weeks . She is G3, P2. She has not established with an CHIEF OF PEDIATRIC UROLOGY. She has been doing some izwu-ins-xurifxy vitamins but does seem to worsen the nausea. The last 3 days she has had nausea and vomiting. No diarrhea no fever no dysuria urgency or frequency denies vaginal bleeding MD elicited complaint: nausea and vomiting Pertinent past history: other (4 weeks ) Onset (ago): day(s) (4) Description of vomiting: watery and bilious Associated nausea: Yes Associated abdominal pain: No Severity: severe Quality: cramping Exacerbating factors: none Relieving factors: none Context: other (First trimester ) Associated symtoms: Reports anorexia and nausea; Denies altered mental status, anxiety, bloating, change in vision, chest pain, cough, diaphoresis, decreased urine output, dizziness, dysuria, epistaxis, fatigue, fecal incontinence, fevers/chills, headache(s), malaise, myalgias, numbness, palpitations, rash, short of breath, syncope, tenesmus, tinnitus or weakness Review of Systems Const: Denies: fatigue, malaise or diaphoresis Eyes: Denies: change in vision ENMT: Denies: tinnitus or epistaxis Card: Denies: chest pain, palpitations or syncope Resp: Denies: dyspnea, productive cough or non-productive cough GI: Reports: nausea; Denies: bloating or fecal incontinence : Denies: flank pain, difficulty voiding, dysuria, urinary frequency or urinary urgency Skin/Breast: Denies: rash or pruritus Neuro: Denies: headache(s) or dizziness Psych: Denies: anxiety PFSH ED PFSH: Medical History Alcoholism Back pain Depression Insomnia Migraine headache Surgical History Hx of cholecystectomy No pertinent past surgical history Family History Denies family history of CAD (coronary artery disease) Chronic kidney disease (CKD) Anesthesia complication Bleeding disorder Cancer Social History Smoking and tobacco status: current every day smoker cigarettes Packs smoked per day: 1 Alcohol intake: never Household members: spouse Marital status: Female Reproductive History: Date of last menstrual period: 08/30/20 Physical Exam Const: COMMON NORMALS: no acute distress EXAM LIMITATIONS: no altered mental status GENERAL APPEARANCE: cooperative and comfortable ORIENTATION/CONSCIOUSNESS: Yes awake, Yes oriented to person, Yes oriented to place and Yes oriented to time HENMT: COMMON NORMALS: normocephalic, atraumatic and hearing grossly normal bilaterally HEAD & SCALP: normocephalic and atraumatic Eye: COMMON NORMALS: Equal, round and reactive pupils present, EOMs intact bilaterally, conjunctivae normal and no scleral icterus CONJUNCTIVA: Yes conjunctivae normal PUPIL: Yes Equal, round and reactive pupils present Neck/C-Spine: COMMON NORMALS: full ROM, no lymphadenopathy, supple and no JVD Lymph: LYMPHATIC: no lymphadenopathy noted and no lymphedema noted Resp: COMMON NORMALS: normal respiratory effort, No retractions, No use of accessory muscles and clear to auscultation bilaterally AUSCULTATION: clear to auscultation bilaterally Cardio: COMMON NORMALS: no JVD, regular rate, regular rhythm and No murmurs present (Cardio) RATE: regular rate RHYTHM: regular rhythm GI: COMMON NORMALS: Soft to palpation and No hepatosplenomegaly present AUSCULTATION: Yes normoactive bowel sounds PALPATION: Yes Soft to palpation, No Tenderness to palpation present (GI), No Guarding due to palpation present (GI) and Yes No hepatosplenomegaly present Extremity: COMMON NORMALS: normal to inspection, capillary refill normal, no clubbing, cyanosis or edema, no calf tenderness and no pedal edema Neuro: SENSORIUM/ORIENTATION: Yes oriented to person, Yes oriented to place and Yes oriented to time Skin: COMMON NORMALS: no rashes or lesions noted GENERAL SKIN EXAM: no rashes or lesions noted Course Vital Signs: Vital signs: Vital Signs Temperature 98.1 F 11/14/20 09:56 Pulse Rate 78 11/14/20 12:03 Respiratory Rate 16 11/14/20 12:03 Blood Pressure 107/64 11/14/20 12:03 Pulse Oximetry 98 02/19/21 11:01 MDM - Nausea/Vomiting/Diarrhea MDM Narrative: Medical decision making narrative: Patient tolerating p.o. well. Is taking 80 mEq p.o. of potassium. She is feeling much better will go ahead and discharge her home with promethazine and likely just follow-up with OB as soon as possible return if has any problems. Lab Data: Labs: Lab Results 11/14/20 11/14/20 11/14/20 Range/Units 10:00 10:00 10:00 WBC 16.8 H (4.0-10.0) 10^3/ uL RBC 5.54 H (4.1-5.3) 10^6/u L Hgb 16.5 H (11.5-15.3) g/dL Hct 47.8 H (37.0-47.0) % MCV 86.3 (81-99) fL MCH 29.8 (28.0-34.0) pg MCHC 34.5 (30.0-36.0) g/dL RDW 12.3 (12.1-15.1) % Plt Count 315 (130-400) 10^3/c mm MPV 12.0 H (7.4-10.4) fL Neut % (Auto) 77.9 % Lymph % (Auto) 13.6 % Hardee % (Auto) 6.0 % Eos % (Auto) 1.7 % Baso % (Auto) 0.4 % Neut # (Auto) 13.10 H (1.8-7.7) 10^3/u L Lymph # (Auto) 2.3 (0.8-4.8) 10^3/u L Hardee # (Auto) 1.0 H (0.2-0.9) 10^3/u L Eos # (Auto) 0.3 (0.0-0.8) 10^3/u L Baso # (Auto) 0.1 (0.0-0.1) 10^3/u L Nucleated RBC % (a uto) 0 % Nucleated RBCs # 0.0 /100WBC Sodium 136 (136-145) mmol/L Potassium 2.7 L* (3.5-5.1) mmol/L Chloride 95 L (98-107) mmol/L Carbon Dioxide 24 (22-29) mmol/L Anion Gap 19.7 H (5-19) BUN 10 (6-20) mg/dL Creatinine 0.6 (0.5-0.9) mg/dL GFR Calculation 118.2 (90-130) mL/min Glucose 116 H (65-115) mg/dL Calculated Osmolal ity 282 L (285-295) mOsm/k g Calcium 10.1 (8.5-10.5) mg/dL Total Bilirubin 0.6 (0.15-1.2) mg/dL AST 34 H (0-32) U/L ALT 31 (0-33) U/L Alkaline Phosphata se 83 (35-105) IU/L Total Protein 8.5 (6.6-8.7) g/dL Albumin 5.5 H (3.5-5.2) g/dL Globulin 3.0 (1.3-4.6) g/dL Ser , Marlin i-Qnt 820627.00 mIU/mL Urine Color (Yellow) Urine Appearance (CLEAR) Urine pH (5-7) Ur Specific Gravit y (1.005-1.030) Urine Protein (Negative) Urine Glucose (UA) (Normal) Urine Ketones (Negative) Urine Blood (Negative) Urine Nitrate (Negative) Urine Bilirubin (Negative) Urine Urobilinogen (Negative) mg/dL Ur Leukocyte Roselia ase (Negative) Urine RBC (0-2) /hpf Urine WBC (0-5) /hpf Ur Squamous Epith Cells (0-5) /hpf Amorphous Sediment Urine Bacteria (NONE) /hpf Urine Mucus /hpf 11/14/20 Range/Units 10:42 WBC (4.0-10.0) 10^3/ uL RBC (4.1-5.3) 10^6/u L Hgb (11.5-15.3) g/dL Hct (37.0-47.0) % MCV (81-99) fL MCH (28.0-34.0) pg MCHC (30.0-36.0) g/dL RDW (12.1-15.1) % Plt Count (130-400) 10^3/c mm MPV (7.4-10.4) fL Neut % (Auto) % Lymph % (Auto) % Hardee % (Auto) % Eos % (Auto) % Baso % (Auto) % Neut # (Auto) (1.8-7.7) 10^3/u L Lymph # (Auto) (0.8-4.8) 10^3/u L Hardee # (Auto) (0.2-0.9) 10^3/u L Eos # (Auto) (0.0-0.8) 10^3/u L Baso # (Auto) (0.0-0.1) 10^3/u L Nucleated RBC % (a uto) % Nucleated RBCs # /100WBC Sodium (136-145) mmol/L Potassium (3.5-5.1) mmol/L Chloride (98-107) mmol/L Carbon Dioxide (22-29) mmol/L Anion Gap (5-19) BUN (6-20) mg/dL Creatinine (0.5-0.9) mg/dL GFR Calculation (90-130) mL/min Glucose (65-115) mg/dL Calculated Osmolal ity (285-295) mOsm/k g Calcium (8.5-10.5) mg/dL Total Bilirubin (0.15-1.2) mg/dL AST (0-32) U/L ALT (0-33) U/L Alkaline Phosphata se (35-105) IU/L Total Protein (6.6-8.7) g/dL Albumin (3.5-5.2) g/dL Globulin (1.3-4.6) g/dL Ser , Marlin i-Qnt mIU/mL Urine Color Yellow (Yellow) Urine Appearance Clear (CLEAR) Urine pH 5 (5-7) Ur Specific Gravit y 1.025 (1.005-1.030) Urine Protein Trace (Negative) Urine Glucose (UA) Norm (Normal) Urine Ketones 2+ H (Negative) Urine Blood Neg (Negative) Urine Nitrate Negative (Negative) Urine Bilirubin 1+ H (Negative) Urine Urobilinogen 1 H (Negative) mg/dL Ur Leukocyte Roselia ase Negative (Negative) Urine RBC None (0-2) /hpf Urine WBC 0-4 H (0-5) /hpf Ur Squamous Epith Cells 5-10 H (0-5) /hpf Amorphous Sediment Not Reportable Urine Bacteria 1+ H (NONE) /hpf Urine Mucus 2+ /hpf Discharge Plan Discharge Patient Disposition: Home Clinical Impression: Hyperemesis, Hypokalemia Condition: Stable Prescriptions: New promethazine 25 mg tablet 25 mg PO Q6H PRN (Reason: nausea and vomiting) Qty: 20 RF: 0 Diclegis 10-10 mg tablet,delayed release (DR/EC) 2 tab PO .qhs Qty: 60 RF: 0 No Action multivitamin Tablet 1 tab PO DAILY@0800 RF: 0 acetaminophen [Tylenol] 325 mg Capsule 325 - 650 mg PO Q4H PRN (Reason: pain/fever) RF: 0 calcium 1 tab PO DAILY@0800 RF: 0 Discharge Orders: Discharge ED (Routine); Ordered 11/14/20 Ordered By: Ezra Robles Referrals: Dilshad Foster NP [Primary Care Provider] - Discharge Diet: Clear Liquid Discharge Activity: Increase activity as tolerated Patient Instructions: Opioid Safety Coding Level of Care Code ED Tank Truck Driver for Ame Fwd Exam Comprehensive
[2020-11-14 10:12] LABS: Basophils # 0.1 10^3/uL (0.0-0.1); Basophils % 0.4 %; Eosinophils # 0.3 10^3/uL (0.0-0.8); Eosinophils % 1.7 %; Hematocrit 47.8 % (37.0-47.0); Hemoglobin 16.5 g/dL (11.5-15.3); Lymphocytes # 2.3 10^3/uL (0.8-4.8); Lymphocytes % 13.6 %; Mean Corpuscular HGB Conc 34.5 g/dL (30.0-36.0); Mean Corpuscular Hemoglobin 29.8 pg (28.0-34.0); Mean Corpuscular Volume 86.3 fL (81-99); Neutrophils % 77.9 %; Nucleated Red Blood Cells % 0 %; Platelet Count 315 10^3/cmm (130-400); Red Blood Count 5.54 10^6/uL (4.1-5.3); Red Cell Distribution Width 12.3 % (12.1-15.1); White Blood Count 16.8 10^3/uL (4.0-10.0)
[2020-11-14] MEDS: promethazine 25 mg/mL SDV 1 mL IM (10:24)
[2020-11-14 10:30] LABS: Alanine Aminotransferase 31 U/L (0-33); Albumin Level 5.5 g/dL (3.5-5.2); Alkaline Phosphatase 83 IU/L (35-105); Anion Gap 19.7 (5-19); Aspartate Amino Transferase 34 U/L (0-32); Blood Urea Nitrogen 10 mg/dL (6-20); Calcium 10.1 mg/dL (8.5-10.5); Carbon Dioxide 24 mmol/L (22-29); Chloride 95 mmol/L (98-107); Glomerular Filtration Rate 118.2 mL/min (90-130); Glucose 116 mg/dL (65-115); Osmolality Calculated 282 mOsm/kg (285-295); Sodium 136 mmol/L (136-145); Total Bilirubin 0.6 mg/dL (0.15-1.2); Total Protein 8.5 g/dL (6.6-8.7)
[2020-11-14 10:33] LABS: Potassium 2.7 mmol/L (3.5-5.1)
[2020-11-14 10:43] LABS: Slide Review Slide Review Perform
[2020-11-14] MEDS: potassium chloride oral liq 20 mEq/15 mL UDC 40 MEQ PO (10:53)
[2020-11-14] MEDS: sodium chloride 0.9% 1,000 ML 999 ML IV (10:54)
[2020-11-14 11:01] VITALS: BP 117/50; PULSE 86; O2SAT 98
--- NOTE | 2020-11-14 11:12 | PC.NURSE ---
1 liter NS initiated by EMS, finished in ED on liter
[2020-11-14 11:39] LABS: Urine Appearance Clear (CLEAR); Urine Color Yellow (Yellow)
[2020-11-14 11:40] LABS: Add Urine Microscopic? YES; Bilirubin Urine 1+ (Negative); Blood Urine Neg (Negative); Glucose Urine UA Norm (Normal); Ketones Urine 2+ (Negative); Leukocyte Esterase Urine Negative (Negative); Nitrate Urine Negative (Negative); Protein Urine Trace (Negative); Specific Gravity, Urine 1.025 (1.005-1.030); Urobilinogen Urine 1 mg/dL (Negative); WBC Urine 0-4 /hpf (0-5); pH Urine 5 (5-7)
[2020-11-14 11:41] LABS: Add Urine Culture? No; Bacteria Urine 1+ /hpf; Mucus Urine 2+ /hpf
[2020-11-14 12:03] VITALS: BP 107/64; PULSE 78; RESP 16
--- NOTE | 2020-11-14 15:24 | DCPLANNER ---
resource conservation manager was asked to schedule a follow up appointment for patient with [facility]. resource conservation manager called the Women[facility] clinic, spoke with Dilcia, gave clinic patients information. Patients information would be printed and reviewed, clinic will call patient with appointment information.
--- NOTE | 2020-11-18 08:10 | DCPLANNER ---
Patient has a follow up appointment scheduled for November at 11:00 with SPONSORSHIP MANAGERDilcia at [facility]. Clinic will call patient with appointment information.
--- NOTE | 2021-01-27 08:12 | DCPLANNER ---
Patient had a follow up appointment scheduled for 12.18.20 with [facility] - patient did attend appointment.
== END 2020-11-14 12:10 | disposition home or self-care (01) ==
PROVIDERS: Physician Assistant; Emergency Provider Family Medicine; PCP Nurse Practitioner Family
DX: R11.10 Vomiting, unspecified (principal); E87.6 Hypokalemia; F17.210 Nicotine dependence, cigarettes, uncomplicated
CPT/HCPCS: 80053; 81001; 84702; 85025; 96360; 96361; 96372; 99283; J2550; J7030

== ENCOUNTER → 2020-12-18 10:39 | Outpatient (BNVA) | payer MEDICAID, SELFPAY | PROVIDERS: PCP Nurse Practitioner Family; Visit Provider Nurse Practitioner Women's Health | DX: O21.9 Vomiting of pregnancy, unspecified (principal); F11.99 Opioid use, unspecified with unspecified opioid-induced disorder; O99.331 Smoking (tobacco) complicating pregnancy, first trimester; O99.321 Drug use complicating pregnancy, first trimester; Z87.59 Personal history of other complications of pregnancy, childbirth and the puerperium; O26.841 Uterine size-date discrepancy, first trimester; O09.899 Supervision of other high risk pregnancies, unspecified trimester | CPT/HCPCS: 80307; 84315 ==

== ENCOUNTER 2021-06-10 13:18 | Outpatient (CLI) | payer MEDICAID, SELFPAY ==
[2021-06-10] VITALS (17 sets, daily range): BP systolic 97–154; BP diastolic 56–96; PULSE 48–97; RESP 16; TEMP 36.2–36.9; O2SAT 100; BMI 26.2
[2021-06-10 15:21] LABS: Basophils # 0.1 10^3/uL (0.0-0.1); Basophils % 0.4 %; Eosinophils # 0.1 10^3/uL (0.0-0.8); Eosinophils % 0.7 %; Hematocrit 47.2 % (37.0-47.0); Hemoglobin 15.8 g/dL (11.5-15.3); Lymphocytes % 23.9 %; Mean Corpuscular HGB Conc 33.5 g/dL (30.0-36.0); Mean Corpuscular Hemoglobin 31.4 pg (28.0-34.0); Mean Corpuscular Volume 93.8 fl (81-99); Mean Platelet Volume 13.9 fL (7.4-10.4); Monocytes # 0.7 10^3/uL (0.2-0.9); Monocytes % 5.5 %; Neutrophils # 8.71 10^3/uL (1.8-7.7); Neutrophils % 68.9 %; Nucleated Red Blood Cells % 0.2 %; Platelet Count 109 10^3/cmm (130-400); Red Blood Count 5.03 10^6/uL (4.1-5.3); Red Cell Distribution Width 13.4 % (12.1-15.1); White Blood Count 12.6 10^3/uL (4.0-10.0)
[2021-06-10 15:38] LABS: Slide Review Slide Review Perform
[2021-06-10 15:49] LABS: Amphetamines Screen Urine Negative (Negative); Barbiturates Screen Urine Negative (Negative); Benzodiazepines Screen Urine Negative (Negative); Cocaine Screen Urine Negative (Negative); Opiate Screen Urine Negative (Negative); PCP Screen Urine Negative (Negative); THC Screen Urine Positive (Negative)
[2021-06-10 15:55] LABS: Alanine Aminotransferase 9 U/L (0-33); Albumin Level 3.7 g/dL (3.5-5.2); Alkaline Phosphatase 184 IU/L (35-105); Anion Gap 15.6 (5-19); Aspartate Amino Transferase 17 U/L (0-32); Blood Urea Nitrogen 6 mg/dL (6-20); Calcium 8.5 mg/dL (8.5-10.5); Carbon Dioxide 25 mmol/L (22-29); Chloride 98 mmol/L (98-107); Globulin 2.6 g/dL (1.3-4.6); Glomerular Filtration Rate 98.9 mL/min (90-130); Glucose 58 mg/dL (65-115); Osmolality Calculated 275 mOsm/kg (285-295); Potassium 3.6 mmol/L (3.5-5.1); Sodium 135 mmol/L (136-145); Total Bilirubin 0.2 mg/dL (0.15-1.2); Total Protein 6.3 g/dL (6.6-8.7)
[2021-06-10 16:17] LABS: Glucose Point of Care 69 mg/dL (70-110)
[2021-06-10] MEDS: lactated ringers 1,000 ML 999 ML IV (16:32)
[2021-06-10] MEDS: dextrose 5%-lactated ringers 1,000 ML 125 ML IV (16:32)
[2021-06-10] MEDS: nicotine 21 mg Patch 1 PATCH TRANSDERMA (17:32)
[2021-06-10] MEDS: betamethasone susp 6 mg/mL 5 mL 12 MG IM (17:55)
--- NOTE | 2021-06-10 18:26 | PM.SDS ---
Short Stay Summary Providers Date of Admit/Discharge: 06/10/21 Attending Provider: Lazarus Agudelo MD Chief Complaint: NST HPI History of Present Illness Deisi Mendez is a 30 year old 3 para 0-1-1-0 2 female at 36 weeks and 3 days who presented to the hospital due to growth restriction and a 6 out of 8 biophysical profile score. The patient had been seen earlier in the week and was noted to be measuring 32 cm despite being 36 weeks. As result an ultrasound was ordered which found the baby to be consistently small in all measurements. All measurements are less than the 5th percentile. In addition the TONIO was found to be 5.1. The patient's was notable for the patient being on methadone throughout her and 60 mg. She is also tested positive for marijuana multiple times. She and her were given clear guidance that marijuana use while can negatively affect her baby. Review of Systems General: Reports: 10 or more systems reviewed and unremarkable except in HPI and below Const: Reports: fatigue; Denies: fever(s) Eyes: Denies: change in vision Card: Denies: chest pain GI: Reports: heartburn Musc: Reports: back pain Bijan/Lymph: Denies: easy bruising Home Meds/Allergies Home Medications and Allergies Home Medications Medication Instructions Recorded Confirmed Type multivitamin 1 tab PO DAILY 11/14/20 06/10/21 History methadone 60 mg PO DAILY 06/10/21 06/10/21 History Allergies Allergy/AdvReac Type Severity Reaction Status Date / Time clindamycin Allergy ALGY-Joint Verified 12/18/20 10:51 Pain PFSH Acute PFSH: Medical History Alcoholism went through rehab-- sober 2016 Back pain Depression Insomnia Migraine headache no aura No pertinent past medical history neghx: htn,dm,thyroid,dvt/pe PCP: Dilshad Lackey Opioid use disorder Surgical History Hx of cholecystectomy Family History Father Heart disease Hypercholesteremia Hypertension Denies family history of Colon cancer Ovarian cancer Diabetes Breast cancer Uterine cancer Thyroid disease Stroke Social History (Updated 06/10/21 @ 18:27 by Lazarus Agudelo MD) Smoking and tobacco status: current every day smoker cigarettes Packs smoked per day: 1 Alcohol intake: former Household members: spouse Marital status: Female Reproductive History: Date of last menstrual period: 08/30/20 : 3 Vitals/I&O/Wt Last Vital Signs Temp 97.5 F L 06/10/21 16:33 Pulse 48 L 06/10/21 17:44 Resp 16 06/10/21 13:57 BP 136/69 06/10/21 17:44 06/10/21 06/10/21 06/10/21 06:59 14:59 22:59 Intake Total 1028.2 / 1028.2 Balance 1028.2 / 1028.2 Weight last 48 hrs Weight 134 lb Physical Exam Narrative: EXAM NARRATIVE: Patient cervix is 1 cm dilated 50% effaced and -3 station. The baby is in vertex position Const: COMMON NORMALS: patient oriented x3 and alert HENMT: COMMON NORMALS: moist oral mucous membranes HEAD & SCALP: normal to inspection Chest: COMMONS NORMALS: normal inspection of the chest Resp: COMMON NORMALS: clear to auscultation bilaterally AUSCULTATION: clear to auscultation bilaterally Cardio: COMMON NORMALS: regular rate and regular rhythm RATE: regular rate RHYTHM: regular rhythm GI: INSPECTION: Yes normal to inspection and Yes other (Gravid) Extremity: COMMON NORMALS: normal to inspection GENERAL: Yes edema (Trace) Neuro: COMMON NORMALS: patient oriented x3, moves all extremities and no sensory deficits noted SENSORIUM/ORIENTATION: Yes alert Psych: COMMON NORMALS: mental status grossly normal Skin: COMMON NORMALS: no rashes or lesions noted GENERAL SKIN EXAM: no rashes or lesions noted Hospital Course Hospital Course After presenting to the hospital an NST was performed.. Initially, the NST was not reactive after the first 40 minutes. At times, she demonstrated minimal variability. With scalp stimulation, and with addition of D5W the tracing became intermittently reactive. She did have several episodes where she had reduced variability that lasted anywhere from 10 to 30 minutes intermixed with episodes of better long-term variability and occasional accelerations. The patient received betamethasone. Her vitals were within normal limits with exception of an occasional elevated blood pressure, particularly after the patient was anxious. Discharge Summary Because of the fetuses growth restriction, low TONIO, and intermittent reduced variability. The fetus will likely need to be delivered over the next several days. Possibly sooner if there is deterioration in the condition of the heart tones. Because of these factors, together with mother's methadone use, the fetus would benefit from delivering in a facility where a ICU is available. As result we will transfer the patient to [facility] for definitive care. SSS Data Imaging^: US: Attestation: I personally reviewed and interpreted this imaging study as follows: (Estimated weight of the with 3 pound 11 ounces. Biophysical profile is 6 out of 8 with an TONIO of 5.1.) Diagnoses at Discharge Discharge Diagnosis (1) Supervision of other high-risk : Status: Acute (2) History of prior with IUGR : Status: Acute (3) Drug use affecting : Status: Acute Qualifiers: Trimester: first trimester Qualified Code(s): O99.321 - Drug use complicating , first trimester (4) Tobacco use in : Status: Acute Qualifiers: Trimester: first trimester Qualified Code(s): O99.331 - Smoking (tobacco) complicating , first trimester (5) Back pain: Status: Acute (6) Opioid use disorder: Status: Acute (7) IUGR (intrauterine growth restriction): Status: Acute (8) Oligohydramnios antepartum: Status: Acute Discharge Plan Discharge Prescriptions: No Action multivitamin Tablet 1 tab PO DAILY RF: 0 methadone 40 mg Tablet,Soluble 60 mg PO DAILY RF: 0 Attestations Medical Necessity Statement*: The patient will be transferred to [facility] today. Time Spent in Patient Care*: greater than 30 min Status at Discharge: Cognitive status at discharge: cognitively intact, Behavioral status at discharge: cooperative, Quality Metrics Clinical Quality Measures: During this hospital stay, did patient experience: None Coding Level of Care Code Acute Rate Examiner for Chg Fwd Diagnoses Supervision of other high-risk O09.899 History of prior with IUGR Z87.59 Drug use affecting O99.321 Trimester: first trimester Tobacco use in O99.331 Trimester: first trimester Back pain M54.9 Opioid use disorder F11.99 IUGR (intrauterine growth restriction) Oligohydramnios antepartum O41.00X0
--- NOTE | 2021-06-10 18:47 | PC.NURSE ---
Spoke with Juanis, Charge Nurse at [facility]. Room will be assigned upon arrival. Ambulance is to bring patient through the Emergency Room and to the Labor and Delivery department where they will be escorted to the room.
--- NOTE | 2021-06-10 19:15 | PC.NURSE ---
Patient loaded on to [facility] by EMS. Report given to white lead filterer. Patient maintained on fluids for transport.
--- NOTE | 2021-06-10 19:24 | PC.NURSE ---
Report called to [facility] Shanika Collado RN. Full report given including patient's stay, BPP 03/05. Patient taken off monitors with FHT 125s with moderate variability. All questions answered.
== END 2021-06-10 19:15 | disposition intermediate care facility (04) ==
LOC: OPOB 13:20 → OBGYN 13:23
PROVIDERS: PCP Nurse Practitioner Family; Visit Provider Family Medicine
DX: O36.5930 Maternal care for other known or suspected poor fetal growth, third trimester, not applicable or unspecified (principal); O09.893 Supervision of other high risk pregnancies, third trimester; Z3A.36 36 weeks gestation of pregnancy; Z87.59 Personal history of other complications of pregnancy, childbirth and the puerperium; O99.323 Drug use complicating pregnancy, third trimester; M54.9 Dorsalgia, unspecified; F11.99 Opioid use, unspecified with unspecified opioid-induced disorder; O41.00X3 Oligohydramnios, unspecified trimester, fetus 3; F12.90 Cannabis use, unspecified, uncomplicated
CPT/HCPCS: 12345; 36415; 36416; 59025; 80053; 80306; 82962; 85025; 86850; 86900; 96372; 99211; J0702

== ENCOUNTER 2023-03-01 14:44 | Emergency (ER) | payer MEDICAID, SELFPAY ==
--- NOTE | 2023-03-01 14:58 | XRR_ITS ---
PROCEDURE INFORMATION: Exam: XR Chest Exam date and time: 03/01/2023 3:03 PM Age: 32 years old Clinical indication: Cough and dyspnea; Prior surgery; Surgery date: 6+ months; Surgery type: Gb; Additional info: Dyspnea/cough TECHNIQUE: Imaging protocol: Radiologic exam of the chest. Views: 1 view. COMPARISON: CT abdomen pelvis w con* [id number] 08/30/2020 1:19 PM FINDINGS: Lungs: Unremarkable. No consolidation. Pleural spaces: Unremarkable. No pleural effusion. No pneumothorax. Heart/Mediastinum: Unremarkable. No cardiomegaly. Bones/joints: Unremarkable. XR/XR chest 1V portable [id number] IMPRESSION: No acute findings.
[2023-03-01 15:01] VITALS: BP 136/81; PULSE 66; TEMP 36.8; O2SAT 98; BMI 21.4
[2023-03-01 15:09] LABS: Basophils # 0.1 10^3/uL (0.0-0.1); Basophils % 0.7 %; Eosinophils # 0.1 10^3/uL (0.0-0.8); Eosinophils % 1.2 %; Hematocrit 45.4 % (37.0-47.0); Hemoglobin 15.2 g/dL (11.5-15.3); Lymphocytes # 3.1 10^3/uL (0.8-4.8); Lymphocytes % 36.2 %; Mean Corpuscular HGB Conc 33.5 g/dL (30.0-36.0); Mean Corpuscular Hemoglobin 29.7 pg (28.0-34.0); Mean Corpuscular Volume 88.8 fl (81-99); Mean Platelet Volume 11.6 fL (7.4-10.4); Monocytes # 0.4 10^3/uL (0.2-0.9); Monocytes % 5.1 %; Neutrophils # 4.89 10^3/uL (1.8-7.7); Neutrophils % 56.6 %; Nucleated Red Blood Cells % 0 %; Platelet Count 209 10^3/cmm (130-400); Red Blood Count 5.11 10^6/uL (4.1-5.3); Red Cell Distribution Width 12.3 % (12.1-15.1); White Blood Count 8.6 10^3/uL (4.0-10.0)
--- NOTE | 2023-03-01 15:14 | W.ED.CHESTPA ---
HPI - Chest Pain General: Chief Complaint: Chest Pain Stated Complaint: CHEST PAIN Time Seen by Provider: 03/01/23 14:58 Source: patient Mode of arrival: EMS History of Present Illness: 32-year-old female presents emergency room had an episode of chest pain rating to the left arm while at [facility]. No known history of coronary disease no history of any arrhythmias. No shortness of breath no nausea vomiting or diaphoresis. MD complaint: chest pain Onset (ago): minute(s) Timing of current episode: episodic Prior episodes: No Pain location: left chest Pain radiation: left arm and left shoulder Severity: mild Quality: sharp Relieving factors: nitroglycerin Exacerbating factors: nothing Associated symptoms: Deny abdominal pain, diaphoresis, dyspnea, fever(s), leg edema, nausea, palpitations, sense of impending doom, syncope or vomiting Treatment prior to arrival: nitroglycerin Review of Systems Const: Denies: fever(s), chills, fatigue, malaise or diaphoresis ENMT: Denies: throat pain, ear or mastoid pain, nasal discharge or nasal congestion Card: Reports: chest pain; Denies: palpitations, irregular heart rhythm, edema or syncope Resp: Denies: dyspnea GI: Denies: abdominal pain, nausea or vomiting : Denies: flank pain, difficulty voiding, dysuria, urinary frequency or urinary urgency Skin/Breast: Denies: rash or pruritus PFSH ED PFSH: Medical History Alcoholism went through rehab-- sober 2016 Back pain Depression Insomnia Migraine headache no aura No pertinent past medical history neghx: htn,dm,thyroid,dvt/pe PCP: Dilshad Lackey Opioid use disorder Surgical History History of Hx of cholecystectomy Family History Father Heart disease Hypercholesteremia Hypertension Denies family history of Colon cancer Ovarian cancer Diabetes Breast cancer Uterine cancer Thyroid disease Stroke Social History Smoking and tobacco status: current every day smoker cigarettes Packs smoked per day: 1 Alcohol intake: former Substance/Drug Use: never Household members: spouse Marital status: Physical Exam Const: GENERAL APPEARANCE: cooperative and comfortable ORIENTATION/CONSCIOUSNESS: Yes awake, Yes oriented to person, Yes oriented to place and Yes oriented to time HENMT: COMMON NORMALS: normocephalic, atraumatic and hearing grossly normal bilaterally HEAD & SCALP: normocephalic and atraumatic Resp: COMMON NORMALS: normal respiratory effort, No retractions, No use of accessory muscles and clear to auscultation bilaterally AUSCULTATION: clear to auscultation bilaterally Cardio: COMMON NORMALS: regular rate, regular rhythm and No murmurs present (Cardio) RATE: regular rate RHYTHM: regular rhythm GI: COMMON NORMALS: Soft to palpation and No hepatosplenomegaly present AUSCULTATION: Yes normoactive bowel sounds PALPATION: Yes Soft to palpation, No Tenderness to palpation present (GI), No Guarding due to palpation present (GI) and Yes No hepatosplenomegaly present Extremity: COMMON NORMALS: normal to inspection, capillary refill normal, no clubbing, cyanosis or edema, no calf tenderness and no pedal edema Neuro: SENSORIUM/ORIENTATION: Yes oriented to person, Yes oriented to place and Yes oriented to time Skin: COMMON NORMALS: no rashes or lesions noted GENERAL SKIN EXAM: no rashes or lesions noted Course Vital Signs: Vital signs: Vital Signs Temperature 98.2 F 03/01/23 15:01 Pulse Rate 65 03/01/23 15:25 Respiratory Rate 14 03/01/23 15:25 Blood Pressure 107/68 03/01/23 15:25 Pulse Oximetry 99 03/01/23 15:25 Oxygen Delivery Me thod Room Air 03/01/23 15:25 MDM - Chest Pain Medical Decision Making Labs imaging and EKG reviewed no acute changes troponin normal patient completely asymptomatic at this time. Her description of symptoms does not sound cardiogenic in nature. We will discharge patient home have her follow-up with her primary care return if she has further problems. Medical Records I reviewed the patient's medical records. Lab Data I reviewed the patient's lab results. 03/01/23 14:56 03/01/23 14:56 Radiology Impressions Chest X-Ray 03/01/23 14:58 IMPRESSION: No acute findings. Laboratory Results WBC 8.6 10^3/uL (4.0-10.0) 03/01/23 14:56 RBC 5.11 10^6/uL (4.1-5.3) 03/01/23 14:56 Hgb 15.2 g/dL (11.5-15.3) 03/01/23 14:56 Hct 45.4 % (37.0-47.0) 03/01/23 14:56 MCV 88.8 fl (81-99) 03/01/23 14:56 MCH 29.7 pg (28.0-34.0) 03/01/23 14:56 MCHC 33.5 g/dL (30.0-36.0) 03/01/23 14:56 RDW 12.3 % (12.1-15.1) 03/01/23 14:56 Plt Count 209 10^3/cmm (130-400) 03/01/23 14:56 MPV 11.6 fL (7.4-10.4) H 03/01/23 14:56 Neut % (Auto) 56.6 % 03/01/23 14:56 Lymph % (Auto) 36.2 % 03/01/23 14:56 [place] % (Auto) 5.1 % 03/01/23 14:56 Eos % (Auto) 1.2 % 03/01/23 14:56 Baso % (Auto) 0.7 % 03/01/23 14:56 Neut # (Auto) 4.89 10^3/uL (1.8-7.7) 03/01/23 14:56 Lymph # (Auto) 3.1 10^3/uL (0.8-4.8) 03/01/23 14:56 [place] # (Auto) 0.4 10^3/uL (0.2-0.9) 03/01/23 14:56 Eos # (Auto) 0.1 10^3/uL (0.0-0.8) 03/01/23 14:56 Baso # (Auto) 0.1 10^3/uL (0.0-0.1) 03/01/23 14:56 Nucleated RBC % (auto) 0 % 03/01/23 14:56 Nucleated RBCs # 0.0 /100WBC 03/01/23 14:56 Sodium 138 mmol/L (136-145) 03/01/23 14:56 Potassium 4.1 mmol/L (3.5-5.1) 03/01/23 14:56 Chloride 102 mmol/L (98-107) 03/01/23 14:56 Carbon Dioxide 23 mmol/L (22-29) 03/01/23 14:56 Anion Gap 17.1 (5-19) 03/01/23 14:56 BUN 6 mg/dL (6-20) 03/01/23 14:56 Creatinine 0.7 mg/dL (0.5-0.9) 03/01/23 14:56 GFR Calculation 97.6 mL/min (90-130) 03/01/23 14:56 Glucose 119 mg/dL (65-115) H 03/01/23 14:56 Calculated Osmolality 285 mOsm/kg (285-295) 03/01/23 14:56 Calcium 9.3 mg/dL (8.5-10.5) 03/01/23 14:56 Total Bilirubin 0.4 mg/dL (0.15-1.2) 03/01/23 14:56 AST 16 U/L (0-32) 03/01/23 14:56 ALT 12 U/L (0-33) 03/01/23 14:56 Alkaline Phosphatase 77 U/L (35-105) 03/01/23 14:56 Troponin T Baseline 6 ng/L (0-10) 03/01/23 14:56 Troponin T 120 Minute 6.00 ng/L (0-10) 03/01/23 16:47 Delta Troponin T 0 ABS# (0-10) 03/01/23 16:47 Total Protein 6.9 g/dL (6.6-8.7) 03/01/23 14:56 Albumin 4.9 g/dL (3.5-5.2) 03/01/23 14:56 Globulin 2.0 g/dL (1.3-4.6) 03/01/23 14:56 Discharge Plan Discharge Patient Disposition: Home Clinical Impression: Atypical chest pain Condition: Stable Prescriptions: No Action Marijuana inhalation DAILY Patient Comments: Has medical marijuana card methadone 40 mg tablet,soluble 70 mg PO DAILY Discharge Orders: Discharge ED (Routine); Ordered 03/01/23 Ordered By: Ezra Robles Referrals: Dilshad Foster NP [Referring] - Discharge Diet: Usual diet Discharge Activity: Increase activity as tolerated Patient Instructions: Opioid Safety, Pain Management Activity Restrictions/Additional Instructions: You were seen today for chest discomfort. Your EKG and cardiac enzymes were negative. Recommend you follow-up with your primary care doctor return if you have further problems. Coding Level of Care Code ED Rrt for Ame Driscoll
--- NOTE | 2023-03-01 15:16 | ECG_ITS ---
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 Measurements Intervals Basye Rate: 52 P: 57 ME: 180 QRS: 80 QRSD: 78 T: 63 QT: 462 QTc: 431 Interpretive Statements SINUS BRADYCARDIA WITH SINUS ARRHYTHMIA POSSIBLE LEFT ATRIAL ENLARGEMENT [-0.1mV P-WAVE IN V1/V2] No previous ECG available for comparison Electronically Signed On 03-01-2023 16:49:50 CDT by Eneida Batista M.D. [email or web address]
[2023-03-01 15:25] VITALS: BP 107/68; PULSE 65; RESP 14; O2SAT 99
[2023-03-01 15:26] LABS: Alanine Aminotransferase 12 U/L (0-33); Albumin Level 4.9 g/dL (3.5-5.2); Alkaline Phosphatase 77 U/L (35-105); Anion Gap 17.1 (5-19); Aspartate Amino Transferase 16 U/L (0-32); Blood Urea Nitrogen 6 mg/dL (6-20); Calcium 9.3 mg/dL (8.5-10.5); Carbon Dioxide 23 mmol/L (22-29); Chloride 102 mmol/L (98-107); Creatinine Clr Calc Pharmacy 86.8741; Glomerular Filtration Rate 97.6 mL/min (90-130); Glucose 119 mg/dL (65-115); Osmolality Calculated 285 mOsm/kg (285-295); Potassium 4.1 mmol/L (3.5-5.1); Sodium 138 mmol/L (136-145); Total Bilirubin 0.4 mg/dL (0.15-1.2); Total Protein 6.9 g/dL (6.6-8.7)
[2023-03-01 16:15] LABS: Troponin(5th) Baseline 6 ng/L (0-10)
[2023-03-01 17:37] LABS: Troponin 5 2HR Delta 0 ABS# (0-10)
== END 2023-03-01 17:17 | disposition home or self-care (01) ==
PROVIDERS: Emergency Provider Family Medicine; PCP Family Medicine
DX: R07.89 Other chest pain (principal)
CPT/HCPCS: 36415; 71045; 80053; 84484; 85025; 93005; 99285

== ENCOUNTER 2023-04-19 05:48 | Emergency (ER) | payer MEDICAID, SELFPAY ==
[2023-04-19 05:52] VITALS: BP 143/92; PULSE 75; RESP 16; TEMP 36.7; O2SAT 98; BMI 18.3
--- NOTE | 2023-04-19 06:08 | W.ED.GENADLT ---
HPI - General Adult General: Chief complaint: General Medical Stated complaint: RASH Time Seen by Provider: 04/19/23 05:53 Source: patient History of Present Illness: 32-year-old female who presents to the emergency room with complaint of a rash. She is concerned she may have scabies. She says she has some flaking of her skin. She also was concerned about a rash on the soles of her feet. Finally she states her took a bleach bath and she was exposed to some fumes from the bleach and cause some coughing and wheezing. She is not having any coughing now she not had any fever sweats or chills. Relieving factors: none Exacerbating factors: none Associated symptoms: Reports cough; Deny chest pain, decreased appetite, dyspnea, fevers/chills, malaise, nausea, rash, seizures, short of breath, syncope, vomiting or weakness Treatments prior to arrival: none Review of Systems Const: Denies: fever(s), chills or malaise Card: Denies: chest pain or syncope Resp: Denies: dyspnea GI: Denies: abdominal pain, nausea or vomiting : Denies: flank pain, difficulty voiding, dysuria, urinary frequency or urinary urgency Skin/Breast: Reports: pruritus; Denies: rash PFSH ED PFSH: Medical History Alcoholism went through rehab-- sober 2015 Back pain Depression Insomnia Migraine headache no aura No pertinent past medical history neghx: htn,dm,thyroid,dvt/pe PCP: Dilshad Lackey Opioid use disorder Surgical History History of Hx of cholecystectomy Family History Father Heart disease Hypercholesteremia Hypertension Denies family history of Colon cancer Ovarian cancer Diabetes Breast cancer Uterine cancer Thyroid disease Stroke Social History Smoking and tobacco status: current every day smoker cigarettes Packs smoked per day: 1 Alcohol intake: former Substance/Drug Use: never Household members: spouse Marital status: Physical Exam Const: GENERAL APPEARANCE: cooperative and comfortable ORIENTATION/CONSCIOUSNESS: Yes awake, Yes oriented to person, Yes oriented to place and Yes oriented to time HENMT: COMMON NORMALS: normocephalic, atraumatic and hearing grossly normal bilaterally HEAD & SCALP: normocephalic and atraumatic Resp: COMMON NORMALS: normal respiratory effort, No retractions, No use of accessory muscles and clear to auscultation bilaterally AUSCULTATION: clear to auscultation bilaterally Cardio: COMMON NORMALS: regular rate, regular rhythm and No murmurs present (Cardio) RATE: regular rate RHYTHM: regular rhythm Extremity: COMMON NORMALS: normal to inspection, capillary refill normal, no clubbing, cyanosis or edema, no calf tenderness and no pedal edema Neuro: SENSORIUM/ORIENTATION: Yes oriented to person, Yes oriented to place and Yes oriented to time Skin: COMMON NORMALS: no rashes or lesions noted GENERAL SKIN EXAM: no rashes or lesions noted OTHER: Examination of the feet there is no evidence of rash or skin breakdown ulcerations lacerations no raised areas or reddened areas. Patient also noted she had a rash on her face that she has a few areas of closed comedones over the left zygomatic arch, and 1 or 2 open comedones over the nose otherwise no other abnormalities no active rash no vesicles no sign of infection. She has 1 small single excoriated area on the right forearm on the dorsal area laterally but there is no infection no induration appears to have been excoriated folliculitis potentially. Examination of the scalp there is no abnormalities no significant seborrheic dermatitis. No active rash noted Course Vital Signs: Vital signs: Vital Signs Temperature 98.0 F 04/19/23 05:52 Pulse Rate 75 04/19/23 05:52 Respiratory Rate 16 04/19/23 05:52 Blood Pressure 143/92 04/19/23 05:52 Pulse Oximetry 98 04/19/23 05:52 Oxygen Delivery Me thod Room Air 04/19/23 05:52 MDM - General Adult Medical Decision Making No sign of abnormal skin rash at this time other than things outlined above there is a little bit of very isolated acne lesions that are very minor. Advised patient she can try some topical Cetaphil or Aquaphilic on her feet or other areas that she feels her dry or itching. Auscultation of her lungs was normal and do not hear any wheezing or rhonchi. She is concerned about potential exposure to the bleach advised her that usually removal from the source of irritant is the best treatment. We did give her albuterol inhaler to use if she develops any other symptoms such as cough or sensation of wheezing. Medical Records I reviewed the patient's medical records. Lab Data I reviewed the patient's lab results. Discharge Plan Discharge Patient Disposition: Home Clinical Impression: Bronchospasm Condition: Stable Prescriptions: New albuterol sulfate 90 mcg/actuation HFA aerosol inhaler 2 inh INHALATION Q4H PRN (Reason: bronchospasm) Qty: 18 0RF No Action Marijuana inhalation DAILY Patient Comments: Has medical marijuana card methadone 40 mg tablet,soluble 70 mg PO DAILY Discharge Orders: Discharge ED (Routine); Ordered 04/19/23 Ordered By: Ezra Robles Referrals: Lazarus Agudelo MD [Primary Care Provider] - Discharge Diet: Usual diet Discharge Activity: Resume usual activity Patient Instructions: Opioid Safety, Pain Management Activity Restrictions/Additional Instructions: You were seen today for complaints of a skin rash. Could not identify a rash on your feet arms or face. You can use Cetaphil or Aquaphilic to help with dry skin or sensitive skin irritation. Apply as often as needed both are available [id number]. You would also mention exposure to fumes from household bleach. The only immediate treatment needed for this is removal from exposure to the fumes. You can use the albuterol you were prescribed today if you have a cough or sense of wheezing. Your exam at the time you were seen was normal, there was no wheezing. Coding Level of Care Code ED Emergency Management Coordinator for Ame Driscoll
[2023-04-19 06:34] VITALS: BP 140/80; PULSE 75; RESP 18; O2SAT 98
== END 2023-04-19 06:35 | disposition home or self-care (01) ==
PROVIDERS: Emergency Provider Family Medicine; PCP Family Medicine
DX: J98.01 Acute bronchospasm (principal); Z79.891 Long term (current) use of opiate analgesic; F17.210 Nicotine dependence, cigarettes, uncomplicated
CPT/HCPCS: 99283

== ENCOUNTER 2023-04-22 04:19 | Inpatient (IN) | payer MEDICAID, SELFPAY ==
[2023-04-22] VITALS (7 sets, daily range): BP systolic 112–122; BP diastolic 74–82; PULSE 54–98; RESP 16–18; TEMP 36.7–37.1; O2SAT 97–99; BMI 18.1
--- NOTE | 2023-04-22 04:21 | W.ED.PSYCHS ---
HPI - Psych General: Chief Complaint: Psychiatric Symptoms Stated Complaint: SI Time Seen by Provider: 04/22/23 04:20 History of Present Illness: Ms. Mendez is a 32-year-old lady with history of depression and opioid use disorder currently on methadone presenting to the emergency department for suicidal ideation and visual/sensory hallucinations. She reports worsening symptoms over the past few weeks. Denies specific attempt to hurt herself. She feels hopeless. Endorses difficulty sleeping. She notices side effects from trying to wean down on her methadone. Overall course of symptoms is worsening. Moderate to severe intensity. No other specific changes in health, exacerbating, or alleviating factors identified. Onset (ago): week(s) Duration: getting worse Associated psychiatric symptoms: suicidal ideation, auditory hallucinations and visual hallucinations Review of Systems General: Reports: 10 or more systems reviewed and unremarkable except in HPI and below PFSH ED PFSH: Medical History Alcoholism went through rehab-- sober 2016 Back pain Depression Insomnia Migraine headache no aura No pertinent past medical history neghx: htn,dm,thyroid,dvt/pe PCP: Dilshad Lackey Opioid use disorder Psychiatric care Surgical History History of Hx of cholecystectomy Family History Father Heart disease Hypercholesteremia Hypertension Denies family history of Colon cancer Ovarian cancer Diabetes Breast cancer Uterine cancer Thyroid disease Stroke Social History Smoking and tobacco status: current every day smoker cigarettes Packs smoked per day: 1 Alcohol intake: former Substance/Drug Use: never Household members: spouse Marital status: Physical Exam Const: COMMON NORMALS: alert GENERAL APPEARANCE: cooperative and well developed HENMT: COMMON NORMALS: normocephalic and atraumatic HEAD & SCALP: normocephalic and atraumatic Eye: COMMON NORMALS: conjunctivae normal CONJUNCTIVA: Yes conjunctivae normal SCLERA: sclerae normal Neck/C-Spine: COMMON NORMALS: supple GENERAL: Yes trachea midline Resp: COMMON NORMALS: normal respiratory effort EFFORT & INSPECTION: Yes able to speak in complete sentences Cardio: COMMON NORMALS: regular rate and regular rhythm RATE: regular rate RHYTHM: regular rhythm GI: COMMON NORMALS: Soft to palpation PALPATION: Yes Soft to palpation and No Tenderness to palpation present (GI) PERCUSSION: normal to percussion Extremity: GENERAL: Yes normal exam except as noted and No edema Neuro: COMMON NORMALS: moves all extremities SENSORIUM/ORIENTATION: Yes alert and No Orientation impaired Psych: COMMON NORMALS: mental status grossly normal and Normal thought process present THOUGHT PROCESS: Normal thought process present Course Vital Signs: Vital signs: Vital Signs Temperature 97.9 F 04/26/23 14:00 Pulse Rate 97 04/26/23 14:00 Respiratory Rate 16 04/26/23 14:00 Blood Pressure 144/78 04/26/23 14:00 Pulse Oximetry 97 04/26/23 14:00 Oxygen Delivery Me thod Room Air 04/26/23 14:00 MDM - Psych Medical Decision Making 32-year-old lady presenting with concern over bumps and hallucinations as well as suicidal ideation. Exam as above. Calm and cooperative Minimal concentration and dehydration on metabolic panel though patient cannot tolerate p.o. intake. Tox test is negative with exception of UDS positive for THC. No indication for imaging Medically satisfactory for NPU. I do not appreciate evidence evidence of scabies. The results of ED evaluation were discussed with the patient including plan for admission due to requirement for level of care not available if discharged to prevent significant worsening/deterioration. Patient agreeable with plan. Discussed with psychiatry service who was agreeable to admit patient. Medical Records I reviewed the patient's medical records. Lab Data I reviewed the patient's lab results. 04/22/23 05:39 04/22/23 08:14 Laboratory Results WBC 8.2 10^3/uL (4.0-10.0) 04/22/23 05:39 RBC 4.78 10^6/uL (4.1-5.3) 04/22/23 05:39 Hgb 14.4 g/dL (11.5-15.3) 04/22/23 05:39 Hct 41.9 % (37.0-47.0) 04/22/23 05:39 MCV 87.7 fl (81-99) 04/22/23 05:39 MCH 30.1 pg (28.0-34.0) 04/22/23 05:39 MCHC 34.4 g/dL (30.0-36.0) 04/22/23 05:39 RDW 12.2 % (12.1-15.1) 04/22/23 05:39 Plt Count 177 10^3/cmm (130-400) 04/22/23 05:39 MPV 11.5 fL (7.4-10.4) H 04/22/23 05:39 Neut % (Auto) 60.8 % 04/22/23 05:39 Lymph % (Auto) 30.6 % 04/22/23 05:39 [place] % (Auto) 7.1 % 04/22/23 05:39 Eos % (Auto) 1.0 % 04/22/23 05:39 Baso % (Auto) 0.4 % 04/22/23 05:39 Neut # (Auto) 4.98 10^3/uL (1.8-7.7) 04/22/23 05:39 Lymph # (Auto) 2.5 10^3/uL (0.8-4.8) 04/22/23 05:39 [place] # (Auto) 0.6 10^3/uL (0.2-0.9) 04/22/23 05:39 Eos # (Auto) 0.1 10^3/uL (0.0-0.8) 04/22/23 05:39 Baso # (Auto) 0.0 10^3/uL (0.0-0.1) 04/22/23 05:39 Nucleated RBC % (auto) 0 % 04/22/23 05:39 Nucleated RBCs # 0.0 /100WBC 04/22/23 05:39 Sodium 141 mmol/L (136-145) 04/22/23 05:39 Potassium 4.1 mmol/L (3.5-5.1) 04/22/23 08:14 Chloride 100 mmol/L (98-107) 04/22/23 05:39 Carbon Dioxide 26 mmol/L (22-29) 04/22/23 05:39 Anion Gap 17.4 (5-19) 04/22/23 05:39 BUN 8 mg/dL (6-20) 04/22/23 05:39 Creatinine 0.6 mg/dL (0.5-0.9) 04/22/23 05:39 GFR Calculation 116.6 mL/min (90-130) 04/22/23 05:39 Glucose 100 mg/dL (65-115) 04/22/23 05:39 Calculated Osmolality 290 mOsm/kg (285-295) 04/22/23 05:39 Calcium 9.1 mg/dL (8.5-10.5) 04/22/23 05:39 Total Bilirubin 0.5 mg/dL (0.15-1.2) 04/22/23 05:39 AST 15 U/L (0-32) 04/22/23 05:39 ALT 15 U/L (0-33) 04/22/23 05:39 Alkaline Phosphatase 55 U/L (35-105) 04/22/23 05:39 Total Protein 6.5 g/dL (6.6-8.7) L 04/22/23 05:39 Albumin 4.7 g/dL (3.5-5.2) 04/22/23 05:39 Globulin 1.8 g/dL (1.3-4.6) 04/22/23 05:39 TSH 1.72 uIU/mL (0.27-4.20) 04/22/23 05:39 HCG, Qual Negative (Negative) 04/22/23 05:50 Salicylates < 0.3 mg/dL (3-10) L 04/22/23 05:39 Urine Opiates Screen Negative ng/mL (Negative) 04/22/23 03:50 Acetaminophen < 5.0 ug/mL (10-30) L 04/22/23 05:39 Ur Barbiturates Screen Negative ng/mL (Negative) 04/22/23 03:50 Ur Phencyclidine Scrn Negative ng/mL (Negative) 04/22/23 03:50 Ur Amphetamines Screen Negative ng/mL (Negative) 04/22/23 03:50 U Benzodiazepines Scrn Negative ng/mL (Negative) 04/22/23 03:50 Urine Cocaine Screen Negative ng/mL (Negative) 04/22/23 03:50 U Marijuana (THC) Screen Positive ng/mL (Negative) H 04/22/23 03:50 Ethyl Alcohol < 10 mg/dL (0-10) 04/22/23 05:39 Discharge Plan Discharge Patient Disposition: Admitted As Inpatient Admit Provider: Edis Diop Clinical Impression: Suicidal ideation, Opioid use disorder, Hallucinations Condition: Stable Discharge Diet: Usual diet Discharge Activity: Resume usual activity Coding Level of Care Code ED Boatbuilder Supervisor for Ame Driscoll
[2023-04-22 05:55] LABS: HCG Qualitative Urine. Negative (Negative)
[2023-04-22 05:56] LABS: Basophils % 0.4 %; Eosinophils # 0.1 10^3/uL (0.0-0.8); Hematocrit 41.9 % (37.0-47.0); Hemoglobin 14.4 g/dL (11.5-15.3); Lymphocytes # 2.5 10^3/uL (0.8-4.8); Lymphocytes % 30.6 %; Mean Corpuscular HGB Conc 34.4 g/dL (30.0-36.0); Mean Corpuscular Hemoglobin 30.1 pg (28.0-34.0); Mean Corpuscular Volume 87.7 fl (81-99); Mean Platelet Volume 11.5 fL (7.4-10.4); Monocytes # 0.6 10^3/uL (0.2-0.9); Monocytes % 7.1 %; Neutrophils # 4.98 10^3/uL (1.8-7.7); Neutrophils % 60.8 %; Nucleated Red Blood Cells % 0 %; Platelet Count 177 10^3/cmm (130-400); Red Blood Count 4.78 10^6/uL (4.1-5.3); Red Cell Distribution Width 12.2 % (12.1-15.1); White Blood Count 8.2 10^3/uL (4.0-10.0)
[2023-04-22 06:04] LABS: Amphetamines Screen Urine Negative (Negative); Barbiturates Screen Urine Negative (Negative); Benzodiazepines Screen Urine Negative (Negative); Cocaine Screen Urine Negative (Negative); Opiate Screen Urine Negative (Negative); PCP Screen Urine Negative (Negative); THC Screen Urine Positive (Negative)
[2023-04-22 06:31] LABS: Alanine Aminotransferase 15 U/L (0-33); Albumin Level 4.7 g/dL (3.5-5.2); Alkaline Phosphatase 55 U/L (35-105); Anion Gap 17.4 (5-19); Aspartate Amino Transferase 15 U/L (0-32); Blood Urea Nitrogen 8 mg/dL (6-20); Calcium 9.1 mg/dL (8.5-10.5); Carbon Dioxide 26 mmol/L (22-29); Chloride 100 mmol/L (98-107); Globulin 1.8 g/dL (1.3-4.6); Glomerular Filtration Rate 116.6 mL/min (90-130); Glucose 100 mg/dL (65-115); Osmolality Calculated 290 mOsm/kg (285-295); Sodium 141 mmol/L (136-145); Thyroid Stimulating Hormone 1.72 uIU/mL (0.27-4.20); Total Bilirubin 0.5 mg/dL (0.15-1.2); Total Protein 6.5 g/dL (6.6-8.7)
[2023-04-22 06:39] LABS: Acetaminophen < 5.0 ug/mL (10-30); Alcohol Level < 10 mg/dL (0-10); Salicylate < 0.3 mg/dL (3-10)
[2023-04-22 06:40] LABS: Potassium 2.4 mmol/L (3.5-5.1)
--- NOTE | 2023-04-22 07:01 | PC.NURSE ---
PT SITTING IN BED TEARFUL. PT STATES THERE ARE BUGS COMING OUT OF MY MOUTH. PT STATES I AM SICK. THIS NURSE ASKED PT WHAT SYMPTOMS SHE WAS HAVING/FEELING RIGHT NOW. PT REPLIED I AM SICK, I HAVE BUGS COMING OUT OF MY MOUTH. NO BUGS NOTED IN ROOM AT THIS TIME.
[2023-04-22] MEDS: potassium chloride oral liq 20 mEq/15 mL UDC 60 MEQ PO (07:16)
--- NOTE | 2023-04-22 07:32 | PC.NURSE ---
ED PHYSICIAN DENIED NEED FOR CARDIAC LEADS ON PT DUE TO POTASSIUM.
[2023-04-22 08:48] LABS: Potassium 4.1 mmol/L (3.5-5.1)
[2023-04-22] MEDS: methadone 10 mg Tablet 40 MG PO (16:16)
[2023-04-23] MEDS: ondansetron 4 MG Tablet PO (00:34)
--- NOTE | 2023-04-23 00:35 | PC.NURSE ---
Pt came to nurses station stating that she was doing ok until another person got moved into her room, and now states that she is nauseous. Pt is requesting PRN medication for nausea at this time. PRN Zofran administered per orders.
--- NOTE | 2023-04-23 01:35 | PC.NURSE ---
Pt con't to c/o about now having a roommate, and that it was making her nauseous. Pt transferred to room 129-1. Will con't to monitor.
[2023-04-23 06:00] VITALS: BP 122/76; PULSE 55; RESP 20; O2SAT 95
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
[2023-04-23 08:43] VITALS: RESP 16; O2SAT 97
[2023-04-23] MEDS: methadone 10 mg Tablet 40 MG PO (08:43)
[2023-04-23] MEDS: ARIPiprazole 10 mg Tablet 5 MG PO (11:08)
[2023-04-23 14:00] VITALS: BP 122/82; PULSE 63; RESP 16; TEMP 36.7; O2SAT 96
[2023-04-23 19:30] VITALS: BP 114/74; PULSE 65; RESP 16; O2SAT 95
[2023-04-23] MEDS: trazodone 50 mg Tablet PO (21:03)
[2023-04-24 06:00] VITALS: BP 125/81; PULSE 57; RESP 16; TEMP 36.5; O2SAT 96
[2023-04-24] MEDS: ARIPiprazole 10 mg Tablet 5 MG PO (08:29)
[2023-04-24 14:00] VITALS: BP 109/69; PULSE 63; RESP 16; TEMP 36.6; O2SAT 99
--- NOTE | 2023-04-24 14:19 | W.PM.NPUPNS ---
Subjective NPU Subjective: Patient is a 32-year-old white female with a history of opiate dependence admitted with complaints of depressed mood and suicidal ideation in the presence of visual hallucinations. The patient had reported no side effects from her Abilify. She had reported that she she had attempted to reduce her methadone aggressively over the past 2 months unsuccessfully with reported side effects. She had continued to endorse some feelings of hopelessness. She had been somewhat quiet and isolative on the milieu. She reported not feeling suicidal today. The patient had reported no use of any stimulants recently. She had endorsed having used marijuana on a daily basis prior to admission. Mental Status Exam MSE Comments: This is a diminutive white female, in hospital scrubs, with adequate grooming and eye contact. No abnormal movements except for mild psychomotor retardation. Cooperative with exam in mild distress. Speech was normal in rate, rhythm and volume. Mood described as okay.; affect was constricted and mood incongruent. Thought process, organized. Thought content: patient denied any suicidal or homicidal ideation, there were no delusions reported or noted, patient denied any current auditory or visual hallucinations. Attention, concentration, and memory appeared grossly intact. Alert and oriented times three. Insight and judgment are limited. Impulse control is limited. Vitals/I&O/Wt Last Vital Signs Temp 97.7 F 04/24/23 06:00 Pulse 57 L 04/24/23 06:00 Resp 16 04/24/23 06:00 BP 125/81 04/24/23 06:00 Pulse Ox 96 04/24/23 06:00 O2 Del Method Room Air 04/23/23 06:00 Weight last 48 hrs Weight 45.087 kg Data NPU 04/22/23 05:39 04/22/23 08:14 A&P Assessment and plan (1) Suicidal ideation: (2) Hallucinations: (3) Opioid use disorder, severe, on maintenance therapy, dependence: Plan This is a 32-year-old, white female, with a history of mental health and addiction issues, who presents after having hallucinations, which she has not previously experienced. 1. Continue Abilify 5 mg daily. 2. Encourage individual, group, and milieu therapy. 3. Continue q-15-minute checks for safety. 4. Recommend sober living treatment at the highest level of care to which the patient is willing to commit. 5. Restart Methadone 70mg daily Involuntary Hold Information 96 Hour Hold: 96 Hour Involuntary Admission: No Attestations NPU Medical Necessity Statement*: Inpatient hospitalization is medically necessary and the clinically appropriate intervention, at this time. We will monitor medications and make changes as indicated. Her likely length of stay is three to five days Coding Level of Care Code Acute Code for Chg Fwd Diagnoses Suicidal ideation R45.851 Hallucinations R44.3 Opioid use disorder, severe, on maintenance therapy, dependence F11.20
[2023-04-24] MEDS: methadone 10 mg Tablet 70 MG PO (15:56)
[2023-04-24] MEDS: trazodone 50 mg Tablet PO (20:52)
[2023-04-24 21:56] VITALS: BP 118/74; PULSE 85; RESP 17; TEMP 36.6; O2SAT 95
[2023-04-25 06:00] VITALS: BP 108/72; PULSE 66; RESP 16; TEMP 36.9; O2SAT 97
[2023-04-25] MEDS: methadone 10 mg Tablet 70 MG PO (07:46)
--- NOTE | 2023-04-25 07:47 | PC.NURSE ---
refused scheduled Abilify, stated she wanted to speak to physician first
[2023-04-25 14:00] VITALS: BP 119/83; PULSE 92; RESP 16; TEMP 36.8; O2SAT 98
--- NOTE | 2023-04-25 16:24 | P.NPUPN_ITS ---
Subjective NPU Subjective: Patient is a 32-year-old white female with a history of opiate dependence admitted with complaints of depressed mood and suicidal ideation in the presence of visual hallucinations. The patient had reported feeling excessively tired with the increase in her methadone. She had not endorsed any chest pain or any anxiety attacks. She reported no side effects from her Abilify at this time. S he had stated that she did not wish to be here any longer but was unable to specify if her hallucinations were better. She had continued intimate at times that she felt like something was crawling on her. She had minimized the abuse of stimulants prior to admission. She had reported depressed mood but reported that she did not need any medications at this time for that problem. Mental Status Exam MSE Comments: This is a diminutive white female, in hospital scrubs, with adequate grooming and eye contact. No abnormal movements except for mild psychomotor retardation. Cooperative with exam in moderate distress. Speech was normal in rate, rhythm and volume. Mood described as allright.; affect was tearful and mood incongruent. Thought process was linear and organized. Thought content: patient denied any suicidal or homicidal ideation, there were no delusions reported or noted, patient denied any current auditory or visual hallucinations although she did appear to be responding to internal stimuli. Attention, concentration, and memory appeared grossly intact. Alert and oriented times three. Insight and judgment are limited. Impulse control is limited. Vitals/I&O/Wt Last Vital Signs Temp 98.2 F 04/25/23 14:00 Pulse 92 04/25/23 14:00 Resp 16 04/25/23 14:00 BP 119/83 04/25/23 14:00 Pulse Ox 98 04/25/23 14:00 O2 Del Method Room Air 04/25/23 14:00 Weight last 48 hrs Weight 45.087 kg Data NPU 04/22/23 05:39 04/22/23 08:14 A&P Assessment and plan (1) Suicidal ideation: (2) Hallucinations: (3) Opioid use disorder, severe, on maintenance therapy, dependence: Plan This is a 32-year-old, white female, with a history of mental health and addiction issues, who presents after having hallucinations, which she has not previously experienced. 1. Continue Abilify 5 mg daily. 2. Encourage individual, group, and milieu therapy. 3. Continue q-15-minute checks for safety. 4. Recommend sober living treatment at the highest level of care to which the patient is willing to commit. 5. Continue Methadone 70mg daily Involuntary Hold Information 96 Hour Hold: 96 Hour Involuntary Admission: No Attestations NPU Medical Necessity Statement*: Inpatient hospitalization is medically necessary and the clinically appropriate intervention, at this time. We will monitor medications and make changes as indicated. Her likely length of stay is three to five days. Coding Level of Care Code Acute Code for [facility] Fwd Diagnoses Suicidal ideation R45.851 Hallucinations R44.3 Opioid use disorder, severe, on maintenance therapy, dependence F11.20
[2023-04-25] MEDS: lactulose oral liq 20 gm/30 mL UDC PO ×2 (16:49→20:31)
[2023-04-25 20:13] VITALS: BP 107/70; PULSE 60; RESP 16; TEMP 36.7; O2SAT 99
[2023-04-25] MEDS: trazodone 50 mg Tablet PO (20:31)
[2023-04-26 06:00] VITALS: BP 94/57; PULSE 65; RESP 16; TEMP 36.6; O2SAT 96
--- NOTE | 2023-04-26 08:06 | PC.NURSE ---
patient came to [facility] ad stated she did have a BM this AM
[2023-04-26 08:41] VITALS: RESP 15; O2SAT 96
[2023-04-26] MEDS: methadone 10 mg Tablet 70 MG PO (08:41)
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
[2023-04-26 13:45] VITALS: RESP 15; O2SAT 96
[2023-04-26 14:00] VITALS: BP 144/78; PULSE 97; RESP 16; TEMP 36.6; O2SAT 97
== END 2023-04-26 15:45 | disposition home or self-care (01) | DRG 125 ==
LOC: ER 05:36 → NP 10:01
PROVIDERS: Family Medicine; Admitting Provider Psychiatry & Neurology Psychiatry; Emergency Provider Emergency Medicine; PCP Family Medicine; Visit Provider Psychiatry & Neurology Psychiatry
DX: R44.1 Visual hallucinations (principal); R45.851 Suicidal ideations; F17.210 Nicotine dependence, cigarettes, uncomplicated; Z62.810 Personal history of physical and sexual abuse in childhood; Z62.811 Personal history of psychological abuse in childhood; F32.A Depression, unspecified; F11.90 Opioid use, unspecified, uncomplicated
CPT/HCPCS: 36415; 80053; 80306; 80307; 81025; 84132; 84443; 85025; 97150; 97165; 99238; 99285; Q0162

== ENCOUNTER 2023-05-03 09:33 | Inpatient (IN) | payer MEDICAID, SELFPAY ==
[2023-05-03 09:36] VITALS: BP 125/81; PULSE 99; TEMP 36.9; O2SAT 100; BMI 18.1
--- NOTE | 2023-05-03 09:39 | ECG_ITS ---
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 Measurements Intervals [place] Rate: 77 P: 62 AK: 168 QRS: 85 QRSD: 78 T: 79 QT: 417 QTc: 473 Interpretive Statements SINUS RHYTHM WITH SINUS ARRHYTHMIA Compared to ECG 03/01/2023 15:16:43 Sinus bradycardia no longer present Electronically Signed On 05-03-2023 17:43:52 CDT by Jez Martinez M.D. [id number]
[2023-05-03 09:52] LABS: Basophils % 0.4 %; Eosinophils % 0.3 %; Hematocrit 48.3 % (37.0-47.0); Hemoglobin 16.3 g/dL (11.5-15.3); Lymphocytes # 1.7 10^3/uL (0.8-4.8); Mean Corpuscular HGB Conc 33.7 g/dL (30.0-36.0); Mean Corpuscular Hemoglobin 30.2 pg (28.0-34.0); Mean Corpuscular Volume 89.4 fl (81-99); Monocytes # 0.6 10^3/uL (0.2-0.9); Monocytes % 5.9 %; Neutrophils # 7.95 10^3/uL (1.8-7.7); Neutrophils % 77.1 %; Nucleated Red Blood Cells % 0 %; Platelet Count 239 10^3/cmm (130-400); Red Cell Distribution Width 12.3 % (12.1-15.1); White Blood Count 10.3 10^3/uL (4.0-10.0)
--- NOTE | 2023-05-03 09:52 | ED_ITS ---
HPI - General Adult General: Chief complaint: General Medical Stated complaint: PAIN ALL OVER Time Seen by Provider: 05/03/23 09:33 Source: patient Mode of arrival: ambulatory Limitations: no limitations History of Present Illness: 32-year-old female who is here with multiple complaints she states she has got chronic pain she supposed to go to a methadone clinic states she has pain all over she states that her whole body hurts when I try to get specific symptoms she states she has none she just hurts everywhere. She denies any fever denies any shortness of breath denies any vomiting or diarrhea. Associated symptoms: Deny chest pain, dyspnea, headache(s), nausea, rash or vomiting Review of Systems Const: Denies: fever(s) or chills ENMT: Denies: throat pain Card: Denies: chest pain Resp: Denies: dyspnea GI: Reports: abdominal pain; Denies: nausea, vomiting or diarrhea Musc: Reports: back pain and extremity pain; Denies: neck pain Skin/Breast: Denies: rash Neuro: Denies: headache(s) PFSH ED PFSH: Medical History Alcoholism went through rehab-- sober 2016 Back pain Depression Insomnia Migraine headache no aura No pertinent past medical history neghx: htn,dm,thyroid,dvt/pe PCP: Dilshad Lackey Opioid use disorder Psychiatric care Surgical History History of Hx of cholecystectomy Family History Father Heart disease Hypercholesteremia Hypertension Denies family history of Colon cancer Ovarian cancer Diabetes Breast cancer Uterine cancer Thyroid disease Stroke Social History Smoking and tobacco status: current every day smoker cigarettes Packs smoked per day: 1 Alcohol intake: former Substance/Drug Use: never Household members: spouse Marital status: Physical Exam Const: COMMON NORMALS: no acute distress, patient oriented x3 and healthy appearing HENMT: COMMON NORMALS: normocephalic and atraumatic HEAD & SCALP: normocephalic and atraumatic Neck/C-Spine: COMMON NORMALS: full ROM and supple Chest: COMMONS NORMALS: normal inspection of the chest Resp: COMMON NORMALS: normal respiratory effort, No retractions, No use of accessory muscles and clear to auscultation bilaterally AUSCULTATION: clear to auscultation bilaterally Cardio: COMMON NORMALS: regular rate, regular rhythm and No murmurs present (Cardio) RATE: regular rate RHYTHM: regular rhythm GI: COMMON NORMALS: Normal to inspection, nondistended, normoactive bowel sounds present, Soft to palpation, non-tender and no masses PALPATION: Yes Soft to palpation Extremity: COMMON NORMALS: normal to inspection and full ROM Neuro: COMMON NORMALS: patient oriented x3, moves all extremities and no focal motor deficits Psych: COMMON NORMALS: mental status grossly normal, Normal thought process present and cooperative THOUGHT PROCESS: Normal thought process present Skin: COMMON NORMALS: no rashes or lesions noted and no wounds GENERAL SKIN EXAM: no rashes or lesions noted Course Vital Signs: Vital signs: Vital Signs Temperature 98.4 F 05/03/23 09:36 Pulse Rate 99 05/03/23 09:36 Blood Pressure 125/81 05/03/23 09:36 Pulse Oximetry 100 05/03/23 09:36 Oxygen Delivery Me thod Room Air 05/03/23 09:36 MDM - General Adult Medical Decision Making Patient had recently been admitted to our [facility] [place] for some hallucinations along with her chronic methadone use. Her did feel that a 96 keeps that it she has been acting differently she denies any SI or HI did speak to psychiatrist Dr. Carlson who knows patient has he had discharged a week ago he felt that she needed to be readmitted at this time I spoke to her and she voluntarily is being admitted to the [facility] [place] Lab Data 05/03/23 09:44 05/03/23 09:44 Laboratory Results WBC 10.3 10^3/uL (4.0-10.0) H 05/03/23 09:44 RBC 5.40 10^6/uL (4.1-5.3) H 05/03/23 09:44 Hgb 16.3 g/dL (11.5-15.3) H 05/03/23 09:44 Hct 48.3 % (37.0-47.0) H 05/03/23 09:44 MCV 89.4 fl (81-99) 05/03/23 09:44 MCH 30.2 pg (28.0-34.0) 05/03/23 09:44 MCHC 33.7 g/dL (30.0-36.0) 05/03/23 09:44 RDW 12.3 % (12.1-15.1) 05/03/23 09:44 Plt Count 239 10^3/cmm (130-400) 05/03/23 09:44 MPV 12.0 fL (7.4-10.4) H 05/03/23 09:44 Neut % (Auto) 77.1 % 05/03/23 09:44 Lymph % (Auto) 16.0 % 05/03/23 09:44 [place] % (Auto) 5.9 % 05/03/23 09:44 Eos % (Auto) 0.3 % 05/03/23 09:44 Baso % (Auto) 0.4 % 05/03/23 09:44 Neut # (Auto) 7.95 10^3/uL (1.8-7.7) H 05/03/23 09:44 Lymph # (Auto) 1.7 10^3/uL (0.8-4.8) 05/03/23 09:44 [place] # (Auto) 0.6 10^3/uL (0.2-0.9) 05/03/23 09:44 Eos # (Auto) 0.0 10^3/uL (0.0-0.8) 05/03/23 09:44 Baso # (Auto) 0.0 10^3/uL (0.0-0.1) 05/03/23 09:44 Nucleated RBC % (auto) 0 % 05/03/23 09:44 Nucleated RBCs # 0.0 /100WBC 05/03/23 09:44 Sodium 142 mmol/L (136-145) 05/03/23 09:44 Potassium 3.3 mmol/L (3.5-5.1) L 05/03/23 09:44 Chloride 101 mmol/L (98-107) 05/03/23 09:44 Carbon Dioxide 24 mmol/L (22-29) 05/03/23 09:44 Anion Gap 20.3 (5-19) H 05/03/23 09:44 BUN 12 mg/dL (6-20) 05/03/23 09:44 Creatinine 0.7 mg/dL (0.5-0.9) 05/03/23 09:44 GFR Calculation 97.6 mL/min (90-130) 05/03/23 09:44 Glucose 92 mg/dL (65-115) 05/03/23 09:44 Calculated Osmolality 293 mOsm/kg (285-295) 05/03/23 09:44 Calcium 9.9 mg/dL (8.5-10.5) 05/03/23 09:44 Total Bilirubin 0.6 mg/dL (0.15-1.2) 05/03/23 09:44 AST 21 U/L (0-32) 05/03/23 09:44 ALT 28 U/L (0-33) 05/03/23 09:44 Alkaline Phosphatase 64 U/L (35-105) 05/03/23 09:44 Total Protein 8.1 g/dL (6.6-8.7) 05/03/23 09:44 Albumin 5.6 g/dL (3.5-5.2) H 05/03/23 09:44 Globulin 2.5 g/dL (1.3-4.6) 05/03/23 09:44 HCG, Qual Negative (Negative) 05/03/23 09:44 Urine Opiates Screen Negative ng/mL (Negative) 05/03/23 10:47 Ur Barbiturates Screen Negative ng/mL (Negative) 05/03/23 10:47 Ur Phencyclidine Scrn Negative ng/mL (Negative) 05/03/23 10:47 Ur Amphetamines Screen Negative ng/mL (Negative) 05/03/23 10:47 U Benzodiazepines Scrn Negative ng/mL (Negative) 05/03/23 10:47 Urine Cocaine Screen Negative ng/mL (Negative) 05/03/23 10:47 U Marijuana (THC) Screen Positive ng/mL (Negative) H 05/03/23 10:47 Ethyl Alcohol < 10 mg/dL (0-10) 05/03/23 09:44 EKG Data EKG 1: I personally reviewed and interpreted this EKG as follows: EKG interpretation date: 05/03/23 EKG interpretation time: 09:51 Interpretation: nsr hr [address] or t wave abnormalities qrs 78 qtc 449 Discharge Plan Discharge Patient Disposition: Admitted As Inpatient Admit Provider: Gallito Colon Clinical Impression: Opioid use disorder, severe, on maintenance therapy, dependence, Psychosis Condition: Stable Coding Level of Care Code ED Automatic Buffing Wheel Former for Ame Driscoll
[2023-05-03] MEDS: haloperidol inj 5 mg/mL INJ 1 mL IM (09:58)
[2023-05-03 10:21] LABS: Alanine Aminotransferase 28 U/L (0-33); Albumin Level 5.6 g/dL (3.5-5.2); Alkaline Phosphatase 64 U/L (35-105); Anion Gap 20.3 (5-19); Aspartate Amino Transferase 21 U/L (0-32); Blood Urea Nitrogen 12 mg/dL (6-20); Calcium 9.9 mg/dL (8.5-10.5); Carbon Dioxide 24 mmol/L (22-29); Chloride 101 mmol/L (98-107); Globulin 2.5 g/dL (1.3-4.6); Glomerular Filtration Rate 97.6 mL/min (90-130); Glucose 92 mg/dL (65-115); Osmolality Calculated 293 mOsm/kg (285-295); Potassium 3.3 mmol/L (3.5-5.1); Sodium 142 mmol/L (136-145); Total Bilirubin 0.6 mg/dL (0.15-1.2); Total Protein 8.1 g/dL (6.6-8.7)
[2023-05-03 10:25] LABS: Alcohol Level < 10 mg/dL (0-10)
[2023-05-03 10:46] LABS: HCG, Serum Qual Negative (Negative)
[2023-05-03 11:07] LABS: Amphetamines Screen Urine Negative (Negative); Barbiturates Screen Urine Negative (Negative); Benzodiazepines Screen Urine Negative (Negative); Cocaine Screen Urine Negative (Negative); Opiate Screen Urine Negative (Negative); PCP Screen Urine Negative (Negative); THC Screen Urine Positive (Negative)
[2023-05-03 13:44] VITALS: BP 108/77; PULSE 76; RESP 16; TEMP 36.8; O2SAT 95
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
[2023-05-03 15:34] VITALS: RESP 18
[2023-05-03] MEDS: methadone 10 mg Tablet 70 MG PO (15:34)
[2023-05-03 20:11] VITALS: BP 103/61; PULSE 65; RESP 16; TEMP 36.9; O2SAT 99
[2023-05-03] MEDS: trazodone 50 mg Tablet PO (21:02)
[2023-05-03] MEDS: haloperidol 5 mg Tablet PO (21:02)
[2023-05-03] MEDS: acetaminophen 325 mg Tablet 650 MG PO (21:02)
[2023-05-04 06:00] VITALS: BP 112/76; PULSE 73; RESP 16; TEMP 36.7; O2SAT 96
[2023-05-04] MEDS: methadone 10 mg Tablet 70 MG PO (09:12)
[2023-05-04 14:00] VITALS: BP 103/67; PULSE 83; RESP 16; TEMP 36.7; O2SAT 97
--- NOTE | 2023-05-04 17:33 | P.NPUPN_ITS ---
Subjective NPU Subjective: Patient is a 32-year-old white female with a history of opiate dependence admitted with complaints of depressed mood and suicidal ideation in the presence of visual hallucinations. The patient remained guarded on the milieu. She had not attended groups. She had reported having social anxiety but also acknowledge significant paranoia and distrust. The patient's had supported that the patient's behavior had worsened with continued beliefs that people were trying to harm her and complaining that insects were crawling on her body. She had endorsed some depressed mood and considerable anxiety. She had not requested any change in her methadone at this time. The patient had been able to eat but required some prompting for showering. Mental Status Exam MSE Comments: This is a diminutive white female, in hospital scrubs, with a disheveled appearance and poor eye contact. There was considerable psychomotor retardation.. She was somewhat cooperative with exam in moderate distress. Speech was decreased in rate, and normal in volume. Mood described as okay.; Her affect was subdued and mood incongruent. Thought process was linear and organized. Her thought content: showed evidence of active paranoia, ideas of reference with delusions. She did at times appear to be responding to internal stimuli. Her attention, concentration, and memory appeared intact, but none were formally tested. She was alert and oriented times three. Her Insight is impaired and judgment is poor. Impulse control is limited. Vitals/I&O/Wt Last Vital Signs Temp 98.1 F 05/04/23 14:00 Pulse 83 05/04/23 14:00 Resp 16 05/04/23 14:00 BP 103/67 05/04/23 14:00 Pulse Ox 97 05/04/23 14:00 O2 Del Method Room Air 05/04/23 06:00 Weight last 48 hrs Weight 42.184 kg Data NPU 05/03/23 09:44 05/03/23 09:44 A&P Assessment and plan (1) Suicidal ideation: (2) Hallucinations: (3) Opioid use disorder, severe, on maintenance therapy, dependence: (4) Major depressive disorder, recurrent, severe with psychotic features: Plan This is a 32-year-old, white female, with a history of mental health and addiction issues, who presents involuntarily 1 week after discharge with increased paranoia, delusions and hallucinations possibly in context of depressi on. 1. Started Invega 3mg at night to target paranoia, add lexapro to target anxiety/depression. 2. Encourage individual, group, and milieu therapy. 3. Continue q-15-minute checks for safety. 4. Recommend sober living treatment at the highest level of care to which the patient is willing to commit. 5. Restart Methadone 70mg daily Involuntary Hold Information 96 Hour Hold: 96 Hour Involuntary Admission: Yes 96 Hour Hold Ending Date: 05/10/23 96 Hour Hold Ending Time: 11:55 Attestations NPU Medical Necessity Statement*: Inpatient hospitalization is medically necessary and is the clinically appropriate intervention at this time. We will monitor medications and make changes as indicated. Her likely length of stay is five to 7 days. Coding Level of Care Code Acute Code for g Fwd Diagnoses Suicidal ideation R45.851 Hallucinations R44.3 Opioid use disorder, severe, on maintenance therapy, dependence F11.20 Major depressive disorder, recurrent, severe with psychotic features F33.3
[2023-05-04 20:33] VITALS: BP 127/76; PULSE 81; RESP 17; TEMP 36.8; O2SAT 95
[2023-05-04] MEDS: paliperidone ER 3 mg Tablet PO (21:15)
[2023-05-04] MEDS: trazodone 50 mg Tablet PO (21:15)
[2023-05-05 06:00] VITALS: RESP 17
--- NOTE | 2023-05-05 06:40 | PC.NURSE ---
pt resting vs not collected per charge nurse resp 17
[2023-05-05] MEDS: methadone 10 mg Tablet 70 MG PO (09:01)
[2023-05-05] MEDS: escitalopram 10 mg Tablet PO (09:01)
--- NOTE | 2023-05-05 12:13 | P.NPUPN_ITS ---
Subjective NPU Subjective: Patient presented today reporting that she is doing okay. She denies any side effects of the medications but was limited in speech spontaneity. Mostly just answering questions in a very guarded manner. She did report remembering this underwriter solicitation director and denied any issues on the unit. She reports that the current medication might be working better than the Abilify did. We agreed we would continue to monitor her situation until we had marked improvement. Mental Status Exam MSE Comments: This is a diminutive white female, in hospital scrubs, with a disheveled appearance and poor eye contact while lying in bed. There was considerable psychomotor retardation. She was somewhat cooperative with exam in moderate distress. Speech was decreased in rate, and normal in volume. Mood described as okay.; Her affect was subdued and mood incongruent. Thought process was linear and organized. Her thought content: showed evidence of active paranoia, ideas of reference with delusions. She did at times appear to be responding to internal stimuli. Her attention, concentration, and memory appeared intact, but none were formally tested. She was alert and oriented times three. Her Insight is impaired and judgment is poor. Impulse control is limited. Vitals/I&O/Wt Last Vital Signs Temp 98.2 F 05/04/23 20:33 Pulse 81 05/04/23 20:33 Resp 17 05/05/23 06:00 BP 127/76 05/04/23 20:33 Pulse Ox 95 05/04/23 20:33 O2 Del Method Room Air 05/04/23 20:33 Data NPU 05/03/23 09:44 05/03/23 09:44 A&P Assessment and plan (1) Suicidal ideation: (2) Hallucinations: (3) Opioid use disorder, severe, on maintenance therapy, dependence: (4) Major depressive disorder, recurrent, severe with psychotic features: Plan This is a 32-year-old, white female, with a history of mental health and addiction issues, who presents involuntarily 1 week after discharge with increased paranoia, delusions and hallucinations possibly in context of de pression. 1. Started Invega 3mg at night to target paranoia, add lexapro to target anxiety/depression. 2. Encourage individual, group, and milieu therapy. 3. Continue q-15-minute checks for safety. 4. Recommend sober living treatment at the highest level of care to which the patient is willing to commit. 5. Restart Methadone 70mg daily Involuntary Hold Information 96 Hour Hold: 96 Hour Involuntary Admission: Yes 96 Hour Hold Ending Date: 05/10/23 96 Hour Hold Ending Time: 11:55 Attestations NPU Medical Necessity Statement*: Inpatient hospitalization is medically necessary and is the clinically appropriate intervention at this time. We will monitor medications and make changes as indicated. Her likely length of stay is 4-6 days. Coding Level of Care Code Acute Code for [facility] Fwd Diagnoses Suicidal ideation R45.851 Hallucinations R44.3 Opioid use disorder, severe, on maintenance therapy, dependence F11.20 Major depressive disorder, recurrent, severe with psychotic features F33.3
[2023-05-05 14:00] VITALS: BP 101/66; PULSE 81; RESP 16; TEMP 36.6; O2SAT 96
[2023-05-05 20:07] VITALS: BP 118/76; PULSE 87; RESP 18; TEMP 37; O2SAT 98
[2023-05-05] MEDS: paliperidone ER 3 mg Tablet PO (20:26)
[2023-05-06 06:00] VITALS: BP 100/64; PULSE 80; RESP 16; TEMP 36.8; O2SAT 97
[2023-05-06] MEDS: escitalopram 10 mg Tablet PO (08:29)
[2023-05-06] MEDS: methadone 10 mg Tablet 70 MG PO (08:29)
[2023-05-06 14:00] VITALS: BP 121/76; PULSE 85; RESP 16; TEMP 36.8; O2SAT 98
--- NOTE | 2023-05-06 18:06 | P.NPUPN_ITS ---
Subjective NPU Subjective: Patient presented today reporting that she is doing better on this medication versus the Abilify. She denies any significant side effects and reports that overall she is feeling better. She reports that she has spoken with her significant other and that he also feels she is doing better. We discussed the fact that we file for 21-day hold because of how the days felt we would not have any more time to determine whether we should do that or not by the time the hold would . We discussed that we would continue to work together to decide whether more time is necessary by Tuesday when her hold ends. Mental Status Exam MSE Comments: This is a diminutive white female, in hospital scrubs, with a disheveled appearance and poor eye contact while lying in bed. There was considerable psyc homotor retardation. She was somewhat cooperative with exam in moderate distress. Speech was decreased in rate, and normal in volume. Mood described as okay.; Her affect was subdued and mood incongruent. Thought process was linear and organized. Her thought content: showed evidence of active paranoia, ideas of reference with delusions. She did at times appear to be responding to internal stimuli. Her attention, concentration, and memory appeared intact, but none were formally tested. She was alert and oriented times three. Her Insight is impaired and judgment is poor. Impulse control is limited. Vitals/I&O/Wt Last Vital Signs Temp 98.2 F 05/06/23 20:50 Pulse 80 05/06/23 20:50 Resp 18 05/06/23 20:50 BP 109/77 05/06/23 20:50 Pulse Ox 97 05/06/23 20:50 O2 Del Method Room Air 05/06/23 20:50 Data NPU 05/03/23 09:44 05/03/23 09:44 A&P Assessment and plan (1) Suicidal ideation: (2) Hallucinations: (3) Opioid use disorder, severe, on maintenance therapy, dependence: (4) Major depressive disorder, recurrent, severe with psychotic features: Plan This is a 32-year-old, white female, with a history of mental health and addiction issues, who presents involuntarily 1 week after discharge with increased paranoia, delusions and hallucinations possibly in context of depression. 1. Started Invega 3mg at night to target paranoia, add lexapro to target anxiety/depression. 2. Encourage individual, group, and milieu therapy. 3. Continue q-15-minute checks for safety. 4. Recommend sober living treatment at the highest level of care to which the patient is willing to commit. 5. Restarted Methadone 70mg daily 6. Filed 21 day hold paperwork. Involuntary Hold Information 96 Hour Hold: 96 Hour Involuntary Admission: Yes 96 Hour Hold Ending Date: 05/10/23 96 Hour Hold Ending Time: 11:55 Attestations NPU Medical Necessity Statement*: Inpatient hospitalization is medically necessary and is the clinically appropriate intervention at this time. We will monitor medications and make changes as indicated. Her likely length of stay is 3-5 days. Coding Level of Care Code Acute Code for [facility] Fwd Diagnoses Suicidal ideation R45.851 Hallucinations R44.3 Opioid use disorder, severe, on maintenance therapy, dependence F11.20 Major depressive disorder, recurrent, severe with psychotic features F33.3
[2023-05-06] MEDS: paliperidone ER 3 mg Tablet PO (20:15)
[2023-05-06 20:50] VITALS: BP 109/77; PULSE 80; RESP 18; TEMP 36.8; O2SAT 97
[2023-05-07 06:00] VITALS: BP 113/74; PULSE 61; RESP 16; O2SAT 96
--- NOTE | 2023-05-07 07:53 | P.NPUPN_ITS ---
Subjective NPU Subjective: Patient presented today reporting that she is feeling better she feels. We discussed the likelihood that we would not proceed with the extension of her hold. She was happy about that. She reported that she feels like the medications are really helping. We discussed planning on Tuesday for aftercare and figuring out if we feel that discharge would be appropriate at that time or within a day or 2 of Tuesday. Mental Status Exam MSE Comments: This is a diminutive white female, in hospital scrubs, with improved grooming and eye contact. There was considerable psychomotor retardation. She was cooperative with exam in moderate distress. Speech was decreased in rate, and normal in volume. Mood described as getting better; Her affect was more congruent. Thought process was linear and organized. Her thought content: showed no evidence of active paranoia, ideas of reference or delusions. She denied auditory or visual hallucinations. Her attention, concentration, and memory appeared intact, but none were formally tested. She was alert and oriented times three. Her Insight is impaired and judgment is poor. Impulse control is limited. Vitals/I&O/Wt Last Vital Signs Temp 98.2 F 05/06/23 20:50 Pulse 61 05/07/23 06:00 Resp 16 05/07/23 06:00 BP 113/74 05/07/23 06:00 Pulse Ox 96 05/07/23 06:00 O2 Del Method Room Air 05/07/23 06:00 Data NPU 05/03/23 09:44 05/03/23 09:44 A&P Assessment and plan (1) Suicidal ideation: (2) Hallucinations: (3) Opioid use disorder, severe, on maintenance therapy, dependence: (4) Major depressive disorder, recurrent, severe with psychotic features: Plan This is a 32-year-old, white female, with a history of mental health and addiction issues, who presents involuntarily 1 week after discharge with increased paranoia, delusions and hallucinations possibly in context of d epression. 1. Started Invega 3mg at night to target paranoia, add lexapro to target anxiety/depression. 2. Encourage individual, group, and milieu therapy. 3. Continue q-15-minute checks for safety. 4. Recommend sober living treatment at the highest level of care to which the patient is willing to commit. 5. Restarted Methadone 70mg daily 6. Filed 21 day hold paperwork. Involuntary Hold Information 96 Hour Hold: 96 Hour Involuntary Admission: Yes 96 Hour Hold Ending Date: 05/10/23 96 Hour Hold Ending Time: 11:55 Attestations NPU Medical Necessity Statement*: Inpatient hospitalization is medically necessary and is the clinically appropriate intervention at this time. We will monitor medications and make jose nges as indicated. Her likely length of stay is 2-4 days. Coding Level of Care Code Acute Code for g Fwd Diagnoses Suicidal ideation R45.851 Hallucinations R44.3 Opioid use disorder, severe, on maintenance therapy, dependence F11.20 Major depressive disorder, recurrent, severe with psychotic features F33.3
[2023-05-07 08:17] VITALS: RESP 16; O2SAT 96
[2023-05-07] MEDS: methadone 10 mg Tablet 70 MG PO (08:17)
[2023-05-07 14:00] VITALS: BP 129/83; PULSE 86; RESP 20; TEMP 37; O2SAT 99
[2023-05-07] MEDS: acetaminophen 325 mg Tablet 650 MG PO (18:45)
[2023-05-07] MEDS: escitalopram 10 mg Tablet PO (19:57)
[2023-05-07] MEDS: paliperidone ER 3 mg Tablet PO (19:57)
[2023-05-07 20:19] VITALS: BP 123/74; PULSE 64; RESP 17; TEMP 36.8; O2SAT 99
[2023-05-08 06:00] VITALS: BP 112/64; PULSE 54; RESP 16; TEMP 36.8; O2SAT 96
[2023-05-08 08:30] VITALS: RESP 16; O2SAT 96
[2023-05-08] MEDS: methadone 10 mg Tablet 70 MG PO (08:30)
[2023-05-08] MEDS: OLANZapine 5 mg ODT PO (12:25)
--- NOTE | 2023-05-08 12:27 | PC.NURSE ---
This nurse observed patient walking in the [place], face reddened and tears streaming down her face. This nurse asked patient what was wrong. Patient shook her head no. This nurse asked if she wanted to talk about it. Patient should her head no. This nurse administered 5mg Zyprexa ODT to patient and encouraged patient to come to nurse if/when she wanted to talk or if any other issues arose.
[2023-05-08 14:00] VITALS: BP 114/73; PULSE 68; RESP 18; TEMP 36.8; O2SAT 100
--- NOTE | 2023-05-08 16:55 | P.NPUPN_ITS ---
Subjective NPU Subjective: Patient presented today reporting that she is continuing to feel better. She is denying any psychotic symptoms. Denying paranoia or auditory or visual hallucinations. She reports that she spoke with her and he feels she is doing well. We continue to discuss the possibility of extending her stay and that we are leaning away from that. We agreed we would talk to her and make a decision about discharge by tomorrow morning. We discussed the possibility of negotiating a couple extra days if necessary and avoiding the hearing. We agreed to discuss this in the morning. Mental Status Exam MSE Comments: This is a diminutive white female, in hospital scrubs, with improved grooming and eye contact. There was considerable psychomotor retardation. She was cooperative with exam in moderate distress. Speech was decreased in rate, and normal in volume. Mood described as getting better; Her affect was more congruent. Thought process was linear and organized. Her thought content: showed no evidence of active paranoia, ideas of reference or delusions. She denied auditory or visual hallucinations. Her attention, concentration, and memory appeared intact, but none were formally tested. She was alert and oriented times three. Her Insight and judgment are limited but improving. Impulse control is limited. Vitals/I&O/Wt Last Vital Signs Temp 98.1 F 05/08/23 14:00 Pulse 62 05/08/23 14:00 Resp 16 05/08/23 14:00 BP 107/69 05/08/23 14:00 Pulse Ox 97 05/08/23 14:00 O2 Del Method Room Air 05/08/23 14:00 Weight last 48 hrs Weight 43.636 kg Data NPU 05/03/23 09:44 05/03/23 09:44 A&P Assessment and plan (1) Suicidal ideation: (2) Hallucinations: (3) Opioid use disorder, severe, on maintenance therapy, dependence: (4) Major depressive disorder, recurrent, severe with psychotic features: Plan This is a 32-year-old, white female, with a history of mental health and addiction issues, who presents involuntarily 1 week after discharge with increased paranoia, delusions and hallucinations possibly in context of d epression. 1. Started Invega 3mg at night to target paranoia, add lexapro to target anxiety/depression. 2. Encourage individual, group, and milieu therapy. 3. Continue q-15-minute checks for safety. 4. Recommend sober living treatment at the highest level of care to which the patient is willing to commit. 5. Restarted Methadone 70mg daily 6. Filed 21 day hold paperwork. But will not plan on having a hearing at this point. Involuntary Hold Information 96 Hour Hold: 96 Hour Involuntary Admission: Yes 96 Hour Hold Ending Date: 05/10/23 96 Hour Hold Ending Time: 11:55 Attestations NPU Medical Necessity Statement*: Inpatient hospitalization is medically necessary and is the clinically appropriate intervention at this time. We will monitor medications and make changes as indicated. Her likely length of stay is 1-3 days. Coding Level of Care Code Acute Code for [facility] Fwd Diagnoses Suicidal ideation R45.851 Hallucinations R44.3 Opioid use disorder, severe, on maintenance therapy, dependence F11.20 Major depressive disorder, recurrent, severe with psychotic features F33.3
[2023-05-08] MEDS: escitalopram 10 mg Tablet PO (20:01)
[2023-05-08] MEDS: paliperidone ER 3 mg Tablet PO (20:01)
[2023-05-08 20:06] VITALS: BP 128/80; PULSE 67; RESP 16; TEMP 36.9; O2SAT 100
[2023-05-09 06:00] VITALS: BP 107/69; PULSE 62; RESP 16; TEMP 36.7; O2SAT 97
[2023-05-09 08:18] VITALS: RESP 16; O2SAT 97
[2023-05-09] MEDS: methadone 10 mg Tablet 70 MG PO (08:18)
[2023-05-09 13:54] VITALS: BP 119/76; PULSE 86; RESP 16; TEMP 36.8; O2SAT 99
--- NOTE | 2023-05-09 15:14 | P.NPUPN_ITS ---
Subjective NPU Subjective: Patient presented today reporting that she is feeling better and optimistic about things moving forward. We are waiting to hear from her to get his impression of her improvement as he has been fairly concerned about a rapid discharge. We also wanted to talk about his concerns related to her getting off of the methadone and making sure that he understands the critical need for this to be a slow and methodical process for her to be successful and without great duress. We discussed the likelihood of discharge within 48 hours Mental Status Exam MSE Comments: This is a diminutive white female, in hospital scrubs, with improved grooming and eye contact. There was considerable psychomotor retardation. She was cooperative with exam in moderate distress. Speech was decreased in rate, and normal in volume. Mood described as pretty good; Her affect was more congruent. Thought process was linear and organized. Her thought content: showed no evidence of active paranoia, ideas of reference or delusions. She denied auditory or visual hallucinations. Her attention, concentration, and memory appeared intact, but none were formally tested. She was alert and oriented times three. Her Insight and judgment are limited but improving. Impulse control is limited. Vitals/I&O/Wt Last Vital Signs Temp 98.3 F 05/09/23 13:54 Pulse 86 05/09/23 13:54 Resp 16 05/09/23 13:54 BP 119/76 05/09/23 13:54 Pulse Ox 99 05/09/23 13:54 O2 Del Method Room Air 05/08/23 14:00 Data NPU 05/03/23 09:44 05/03/23 09:44 A&P Assessment and plan (1) Suicidal ideation: (2) Hallucinations: (3) Opioid use disorder, severe, on maintenance therapy, dependence: (4) Major depressive disorder, recurrent, severe with psychotic features: Plan This is a 32-year-old, white female, with a history of mental health and addiction issues, who presents involuntarily 1 week after discharge with increased paranoia, delusions and hallucinations possibly in context of depression. 1. Started Invega 3mg at night to target paranoia, add lexapro to target anxiety/depression. 2. Encourage individual, group, and milieu therapy. 3. Continue q-15-minute checks for safety. 4. Recommend sober living treatment at the highest level of care to which the patient is willing to commit. 5. Restarted Methadone 70mg daily 6. Filed 21 day hold paperwork. But plan to discharge in the next 48 hours. Involuntary Hold Information 96 Hour Hold: 96 Hour Involuntary Admission: Yes 96 Hour Hold Ending Date: 05/10/23 96 Hour Hold Ending Time: 11:55 Attestations NPU Medical Necessity Statement*: Inpatient hospitalization is medically necessary and is the clinically appro priate intervention at this time. We will monitor medications and make changes as indicated. Her likely length of stay is 1-3 days. Coding Level of Care Code Acute Code for [facility] Fwd Diagnoses Suicidal ideation R45.851 Hallucinations R44.3 Opioid use disorder, severe, on maintenance therapy, dependence F11.20 Major depressive disorder, recurrent, severe with psychotic features F33.3
[2023-05-09 19:58] VITALS: BP 121/74; PULSE 71; RESP 16; TEMP 36.6; O2SAT 99
[2023-05-09] MEDS: paliperidone ER 3 mg Tablet PO (20:01)
[2023-05-09] MEDS: escitalopram 10 mg Tablet PO (20:02)
[2023-05-10 06:00] VITALS: BP 100/66; PULSE 76; RESP 16; TEMP 36.8; O2SAT 97
[2023-05-10 08:21] VITALS: RESP 16; O2SAT 97
[2023-05-10] MEDS: methadone 10 mg Tablet 70 MG PO (08:21)
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
[2023-05-10 13:55] VITALS: BP 115/70; PULSE 77; RESP 16; TEMP 36.6; O2SAT 99
[2023-05-10 14:10] VITALS: BP 115/70; PULSE 77; RESP 16; TEMP 36.6; O2SAT 99
== END 2023-05-10 14:12 | disposition home or self-care (01) | DRG 885 ==
LOC: ER 10:49 → NP 11:22
PROVIDERS: Admitting Provider Psychiatry & Neurology Psychiatry; Emergency Provider Emergency Medicine; PCP Family Medicine; Visit Provider Psychiatry & Neurology Psychiatry
DX: F29 Unspecified psychosis not due to a substance or known physiological condition (principal); R45.851 Suicidal ideations; F11.21 Opioid dependence, in remission; F32.A Depression, unspecified; Z62.810 Personal history of physical and sexual abuse in childhood; Z62.811 Personal history of psychological abuse in childhood; Z62.812 Personal history of neglect in childhood; F17.210 Nicotine dependence, cigarettes, uncomplicated
CPT/HCPCS: 80053; 80306; 80307; 84703; 85025; 93005; 96372; 97150; 97165; 99238; 99285; J1630